=== PATIENT | male | born 1955 | race Caucasian/White ===

== ENCOUNTER → 2019-06-04 12:18 | Outpatient (BNVA) | payer MEDICARE, MEDICAID, SELFPAY | PROVIDERS: Family Provider Nurse Practitioner; PCP Nurse Practitioner; Visit Provider Nurse Practitioner | DX: E78.2 Mixed hyperlipidemia (principal); M17.12 Unilateral primary osteoarthritis, left knee; Z12.5 Encounter for screening for malignant neoplasm of prostate; M19.90 Unspecified osteoarthritis, unspecified site | CPT/HCPCS: 80053; 80061; 85025; G0103 ==

== ENCOUNTER → 2019-12-24 09:02 | Outpatient (BNVA) | payer MEDICARE, MEDICAID, SELFPAY | PROVIDERS: Family Provider Nurse Practitioner; PCP Nurse Practitioner; Visit Provider Nurse Practitioner | DX: M17.12 Unilateral primary osteoarthritis, left knee (principal); Z12.83 Encounter for screening for malignant neoplasm of skin | CPT/HCPCS: 80053 ==

== ENCOUNTER → 2020-06-24 13:45 | Outpatient (BNVA) | payer MEDICARE, MEDICAID, SELFPAY | PROVIDERS: Family Provider Nurse Practitioner; PCP Nurse Practitioner; Visit Provider Nurse Practitioner | DX: K64.4 Residual hemorrhoidal skin tags (principal); M17.12 Unilateral primary osteoarthritis, left knee; Z12.83 Encounter for screening for malignant neoplasm of skin; E78.5 Hyperlipidemia, unspecified; Z12.5 Encounter for screening for malignant neoplasm of prostate; Z79.899 Other long term (current) drug therapy | CPT/HCPCS: 80053; 85025 ==

== ENCOUNTER → 2020-12-15 08:18 | Outpatient (BNVA) | payer MEDICARE, MEDICAID, SELFPAY | PROVIDERS: Family Provider Nurse Practitioner; PCP Nurse Practitioner; Visit Provider Nurse Practitioner | DX: Z13.6 Encounter for screening for cardiovascular disorders (principal); Z12.5 Encounter for screening for malignant neoplasm of prostate | CPT/HCPCS: 80053; 80061; G0103 ==

== ENCOUNTER → 2021-01-26 14:03 | Outpatient (BNVA) | payer MEDICARE, MEDICAID, SELFPAY | PROVIDERS: Family Provider Nurse Practitioner; PCP Nurse Practitioner; Visit Provider Nurse Practitioner | DX: R10.9 Unspecified abdominal pain (principal); K59.00 Constipation, unspecified; K64.4 Residual hemorrhoidal skin tags | CPT/HCPCS: 74018; 80053; 85025 ==

== ENCOUNTER → 2021-02-28 09:36 | Outpatient (BNVA) | payer MEDICARE, MEDICAID, SELFPAY | PROVIDERS: Family Provider Nurse Practitioner; PCP Nurse Practitioner; Visit Provider Surgery | DX: Z12.11 Encounter for screening for malignant neoplasm of colon (principal); Z20.822 Contact with and (suspected) exposure to COVID-19; Z01.812 Encounter for preprocedural laboratory examination | CPT/HCPCS: 87635 ==

== ENCOUNTER 2021-03-04 07:10 | Day surgery (SDC) | payer MEDICARE, MEDICAID, SELFPAY ==
[2021-03-02 14:46] VITALS: BMI 25.0
--- NOTE | 2021-03-04 07:29 | ANES.PREANE2 ---
Pre-Anesthetic Assessment Height/Weight: Height 1.68 m Weight 70.307 kg Preop Diagnosis: diagnostic Operation Date: 03/04/21 08:30 Proposed Procedures p Colonoscopy 84188 Z12.11(Not Applicable) - Rosalino Cedeno MD Familial anesthetic complications: None Was Beta Elo taken within 24 hours: N/A Was Clonidine taken within 24 hours: N/A Social No alcohol and No tobacco Exam alert, oriented x 3, clear to auscultation bilaterally and regular rate & rhythm Airway Submandibular: within normal limits Cervical ROM: within normal limits Mallampati: Class II Dentition: full Pulmonary None reported CV/HEM None reported METS > 4 None reported Hepatic None reported GI None reported Metabolic None reported Musc/skel None reported Neuropsych None reported Anesthetic Plan ASA status: 1 Anesthesia: Anesthesia Evaluation, General and MAC Other: I discussed with the patient risks, goals, and benefits of MAC and general anesthesia. We discussed spectrum of MAC anesthesia including conversion to general as well as possibility of recall of intraoperative stimuli including discomfort/pain. Patient agrees to proceed with MAC. Risk of > 500 ml blood loss (7ml/kg in children): No Medications/Allergies Home Medications Medication Instructions Recorded Confirmed Last Taken Type aspirin 325 mg tablet,delayed 325 mg PO DAILY PRN 06/03/19 03/02/21 Unknown History release (Aspir-Lindsay) meloxicam 7.5 mg tablet (Mobic) 7.5 mg PO DAILY #30 tab 12/15/20 03/02/21 Unknown Rx hydrocortisone 2.5 % topical cream [address] Q12H PRN #30 g 01/26/21 03/02/21 Unknown Rx with perineal applicator (Proctosol HC) Allergies Allergy/AdvReac Type Severity Reaction Status Date / Time Penicillins Allergy Difficulty Verified 12/21/20 14:30 swallowing PFS Anesthesia Medical History History of basal cell carcinoma Under right eye 1998 Mixed hyperlipidemia Osteoarthritis Surgical History H/O left knee surgery History of sinus surgery Family History Father COPD (chronic obstructive pulmonary disease) Social History (Reviewed 03/04/21 @ 07:29 by JELENA Dunaway Smoking and tobacco status: never smoked Second hand smoke exposure: No Smoking risk assessment/counseling performed?: No Alcohol intake: never Desire information about alcohol rehabilitation?: No Counseling given: No Desire information about substance/drug rehabilitation?: No Counseling given: No Adopted: No Caregiver/support person: No Lives independently: Yes Household members: spouse Housing: House Marital status: Number of children: 2 service: No Current occupational status: retired Current occupational exposures/hazards: No History of recent travel: No Current gender identity: Male Data Anesthesia Cardiac Studies: No Data to Display
[2021-03-04 07:53] VITALS: BP 103/66; PULSE 76; RESP 18; TEMP 36.4; O2SAT 97
[2021-03-04] MEDS: sodium chloride 0.9% 1,000 ML 30 ML IV (08:00)
--- NOTE | 2021-03-04 08:23 | P.HP_ITS ---
Same Day Surgery H&P Indication for Procedure/HPI DATE OF PROCEDURE: March 04, 2021 CHIEF COMPLAINT/INDICATIONFOR SURGICAL PROCEDURE: screening PREOP DIAGNOSIS: diagnostic PLANNED PROCEDURE: Operation Date: 03/04/21 08:30 Proposed Procedures p Colonoscopy 40074 Z12.11(Not Applicable) - Rosalino Cedeno MD Medications/Allergies* Home Medications Medication Instructions Recorded Confirmed Type aspirin 325 mg tablet,delayed 325 mg PO DAILY PRN 06/03/19 03/04/21 History release (Aspir-Lindsay) Allergies/Adverse Reactions Allergy/AdvReac Type Severity Reaction Status Date / Time Penicillins Allergy Difficulty Verified 03/04/21 07:52 swallowing Current Medications: Generic Name Dose Route Start Last Admin Trade Name Freq PRN Reason Stop Dose Admin Sodium Chloride 1,000 mls @ 30 mls/hr 03/04/21 07:30 03/04/21 08:00 Sodium Chloride 0.9% IV 03/05/21 07:29 30 mls/hr .Q24H LISETTE Administration Pertinent History/Comorbid Conditions* Medical History (Updated 12/21/20 @ 16:25 by Rosalino Cedeno MD) History of basal cell carcinoma Under right eye 1998 Mixed hyperlipidemia Osteoarthritis Surgical History (Updated 12/21/20 @ 16:25 by Rosalino Cedeno MD) H/O left knee surgery History of sinus surgery Family History (Updated 06/04/19 @ 12:17 by NELDA Orlando) COPD (chronic obstructive pulmonary disease) Father Social History Smoking and tobacco status: never smoked Second hand smoke exposure: No Smoking risk assessment/counseling performed?: No Alcohol intake: never Desire information about alcohol rehabilitation?: No Counseling given: No Desire information about substance/drug rehabilitation?: No Counseling given: No Adopted: No Caregiver/support person: No Lives independently: Yes Household members: spouse Housing: House Marital status: Number of children: 2 service: No Current occupational status: retired Current occupational exposures/hazards: No History of recent travel: No Current gender identity: Male Pertinent Exam Findings alert, oriented x 3 and regular rate & rhythm Recommendations Surgery/Procedure today Coding Level of Care Code Acute Knitter Operator for Justin Kelley
[2021-03-04 08:47] VITALS: BP 109/69; PULSE 66; RESP 12; TEMP 36.2; O2SAT 98
--- NOTE | 2021-03-04 12:53 | ANE.PACU2 ---
Inpatient post-anesthesia follow up: Airway intact: Yes Vital signs: Temperature 97.1 F Pulse Rate 66 Respiratory Rate 12 Blood Pressure 109/69 Pulse Oximetry 98 Oxygen Delivery Me thod Room Air Oxygen Flow Rate Fraction of Inspir ed Oxygen Hydration adequate: Yes Nausea and vomiting: No Pain level: 1 Mental status: Baseline
== END 2021-03-04 09:22 | disposition home or self-care (01) ==
PROVIDERS: PCP Nurse Practitioner; Visit Provider Surgery
PROC: 0DJD8ZZ Inspection of Lower Intestinal Tract, Via Natural or Artificial Opening Endoscopic (ICD-10-PCS; CPT 45378; principal; 2021-03-04 08:30)
DX: Z12.11 Encounter for screening for malignant neoplasm of colon (principal); D12.5 Benign neoplasm of sigmoid colon; K64.8 Other hemorrhoids; Z79.82 Long term (current) use of aspirin; E78.2 Mixed hyperlipidemia; M19.90 Unspecified osteoarthritis, unspecified site
CPT/HCPCS: 45380; 88305; J2704; J7030

== ENCOUNTER → 2021-05-12 14:59 | Outpatient (BNVA) | payer MEDICARE, MEDICAID, SELFPAY | PROVIDERS: PCP Nurse Practitioner; Visit Provider Nurse Practitioner Family | DX: R05.9 Cough, unspecified (principal); J06.9 Acute upper respiratory infection, unspecified | CPT/HCPCS: 87400; 87635 ==

== ENCOUNTER → 2021-06-08 09:10 | Outpatient (BNVA) | payer MEDICARE, MEDICAID, SELFPAY | PROVIDERS: PCP Nurse Practitioner; Visit Provider Nurse Practitioner | DX: M17.12 Unilateral primary osteoarthritis, left knee (principal) | CPT/HCPCS: 80053 ==

== ENCOUNTER → 2021-12-19 09:12 | Outpatient (BNVA) | payer MEDICARE, MEDICAID, SELFPAY | PROVIDERS: PCP Nurse Practitioner; Visit Provider Nurse Practitioner | DX: E78.2 Mixed hyperlipidemia (principal); Z12.5 Encounter for screening for malignant neoplasm of prostate | CPT/HCPCS: 80053; 80061; G0103 ==

== ENCOUNTER → 2022-05-30 09:56 | Outpatient (BNVA) | payer MEDICARE, MEDICAID, SELFPAY | PROVIDERS: PCP Family Medicine; Referring Provider Family Medicine; Visit Provider Surgery | DX: K64.9 Unspecified hemorrhoids (principal) | CPT/HCPCS: 99213 ==

== ENCOUNTER → 2022-06-15 11:33 | Outpatient (BNVA) | payer MEDICARE, MEDICAID, SELFPAY | PROVIDERS: PCP Family Medicine; Visit Provider Nurse Practitioner Family | DX: R07.9 Chest pain, unspecified (principal); E78.2 Mixed hyperlipidemia | CPT/HCPCS: 71046; 80053; 84484; 85025 ==

== ENCOUNTER 2022-06-17 09:29 | Emergency (ER) | payer MEDICARE, MEDICAID, SELFPAY ==
[2022-06-17] VITALS (12 sets, daily range): BP systolic 132–159; BP diastolic 75–89; PULSE 68–88; RESP 16; O2SAT 97–99; BMI 25.8
--- NOTE | 2022-06-17 09:33 | ECG_ITS ---
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 Measurements Intervals [place] Rate: 81 P: 28 [place]: 152 QRS: -17 QRSD: 102 T: 69 QT: 357 QTc: 416 Interpretive Statements SINUS RHYTHM NONSPECIFIC T-WAVE ABNORMALITY No previous ECG available for comparison Electronically Signed On 06-17-2022 19:23:02 CDT by Arcadio Castro M.D. [email or web address]De[id number] f
--- NOTE | 2022-06-17 09:33 | XRR_ITS ---
PROCEDURE INFORMATION: Exam: XR Chest Exam date and time: 06/17/2022 10:18 AM Age: 67 years old Clinical indication: Pain; Chest pressure; Additional info: Chest pain TECHNIQUE: Imaging protocol: Radiologic exam of the chest. Views: 1 view. COMPARISON: CR XR chest 2V* [id number] 06/15/2022 11:34 AM FINDINGS: Lungs: The lung parenchyma is clear. Pleural spaces: No pneumothorax. No pleural effusion. Heart/Mediastinum: The cardiomediastinal silhouette is within normal limits. Bones/joints: Unremarkable. XR/XR chest 1V portable [id number] IMPRESSION: No acute cardiopulmonary abnormality.
[2022-06-17] MEDS: aspirin 81 mg Chew Tablet 324 MG PO (09:47)
--- NOTE | 2022-06-17 09:47 | ED_ITS ---
HPI - Chest Pain General: Chief Complaint: Chest Pain Stated Complaint: Chest pain Time Seen by Provider: 06/17/22 09:31 Source: patient Mode of arrival: ambulatory History of Present Illness: 67-year-old male presents to the emergency room with complaints of shortness of breath and chest pain initially began 3 days ago. He had bilateral arm numbness it seemed to come and go lasted no more than an hour earlier in the week this morning began having around 7 AM describes it as a tightness symptoms. He has some mild discomfort in his chest at this time. He has no known cardiac history. He has not had any associated diaphoresis or nausea. No previous cardiac evaluation. MD complaint: chest pain Onset (ago): day(s) (3) Timing of current episode: episodic Prior episodes: Yes Onset: during rest Pain location: substernal Pain radiation: right arm and left arm Severity: mild Quality: aching and heaviness Relieving factors: nothing Exacerbating factors: nothing Associated symptoms: Reports dyspnea; Deny abdominal pain, diaphoresis, fever(s), leg edema, nausea, palpitations, sense of impending doom, syncope, vomiting or other Review of Systems Const: Denies: fever(s), chills, fatigue, malaise or diaphoresis ENMT: Denies: throat pain, ear or mastoid pain, nasal discharge or nasal congestion Card: Reports: chest pain; Denies: palpitations, irregular heart rhythm, edema or syncope Resp: Reports: dyspnea; Denies: productive cough or non-productive cough GI: Denies: abdominal pain, nausea or vomiting : Denies: flank pain, dysuria, urinary frequency or urinary urgency Musc: Denies: neck pain or back pain Skin/Breast: Denies: rash or pruritus PFSH ED PFSH: Medical History History of basal cell carcinoma Under right eye 1998 Mixed hyperlipidemia Osteoarthritis Surgical History H/O left knee surgery History of colonoscopy with polypectomy (03/04/21) History of sinus surgery Family History Father COPD (chronic obstructive pulmonary disease) Social History Smoking and tobacco status: never smoked Second hand smoke exposure: No Smoking risk assessment/counseling performed?: No Alcohol intake: never Desire information about alcohol rehabilitation?: No Counseling given: No Substance/Drug Use: never Desire information about substance/drug rehabilitation?: No Counseling given: No Adopted: No Caregiver/support person: No Lives independently: Yes Household members: spouse Housing: House Marital status: Number of children: 2 service: No Current occupational status: retired Current occupational exposures/hazards: No Do you think of yourself as: Straight/Heterosexual Current gender identity: Male Physical Exam Const: COMMON NORMALS: no acute distress GENERAL APPEARANCE: cooperative and comfortable ORIENTATION/CONSCIOUSNESS: Yes awake, Yes oriented to person, Yes oriented to place and Yes oriented to time HENMT: COMMON NORMALS: normocephalic, atraumatic and hearing grossly normal bilaterally HEAD & SCALP: normocephalic and atraumatic Resp: COMMON NORMALS: normal respiratory effort, No retractions, No use of accessory muscles and clear to auscultation bilaterally AUSCULTATION: clear to auscultation bilaterally Cardio: COMMON NORMALS: regular rate, regular rhythm and No murmurs present (Cardio) RATE: regular rate RHYTHM: regular rhythm GI: COMMON NORMALS: Soft to palpation and No hepatosplenomegaly present AUSCULTATION: Yes normoactive bowel sounds PALPATION: Yes Soft to palpation, No Tenderness to palpation present (GI), No Guarding due to palpation present (GI) and Yes No hepatosplenomegaly present Extremity: COMMON NORMALS: normal to inspection, capillary refill normal, no clubbing, cyanosis or edema, no calf tenderness and no pedal edema Neuro: SENSORIUM/ORIENTATION: Yes oriented to person, Yes oriented to place and Yes oriented to time Skin: COMMON NORMALS: no rashes or lesions noted GENERAL SKIN EXAM: no rashes or lesions noted Course Vital Signs: Vital signs: Vital Signs Pulse Rate 68 06/17/22 11:15 Respiratory Rate 16 06/17/22 09:33 Blood Pressure 136/75 06/17/22 12:00 Pulse Oximetry 98 06/17/22 12:45 Oxygen Delivery Me thod Room Air 06/17/22 09:33 MDM - Chest Pain Medical Decision Making Chest pain resolved patient has not had any further symptoms EKG is unremarkable troponin does not have a significant delta change. We will start him on isosorbide mononitrate also start him on baby aspirin daily we will set him up for an outpatient Lexiscan sestamibi stress test. If he has any worsening or change symptoms return avoid exertional activity. Medical Records I reviewed the patient's medical records. Lab Data I reviewed the patient's lab results. 06/17/22 09:45 06/17/22 09:45 Radiology Impressions Chest X-Ray 06/17/22 09:33 IMPRESSION: No acute cardiopulmonary abnormality. Laboratory Results WBC 12.2 10^3/uL (4.0-10.0) H 06/17/22 09:45 RBC 4.60 10^6/uL (4.1-5.3) 06/17/22 09:45 Hgb 13.5 g/dL (11.7-16.6) 06/17/22 09:45 Hct 42.0 % (42.0-52.0) 06/17/22 09:45 MCV 91.3 fl (80-94) 06/17/22 09:45 MCH 29.3 pg (28.0-34.0) 06/17/22 09:45 MCHC 32.1 g/dL (30.0-36.0) 06/17/22 09:45 RDW 13.7 % (12.1-15.1) 06/17/22 09:45 Plt Count 244 10^3/cmm (130-400) 06/17/22 09:45 MPV 11.1 fL (7.4-10.4) H 06/17/22 09:45 Neut % (Auto) 84.9 % 06/17/22 09:45 Lymph % (Auto) 5.6 % 06/17/22 09:45 [place] % (Auto) 8.9 % 06/17/22 09:45 Eos % (Auto) 0.0 % 06/17/22 09:45 Baso % (Auto) 0.2 % 06/17/22 09:45 Neut # (Auto) 10.38 10^3/uL (1.8-7.7) H 06/17/22 09:45 Lymph # (Auto) 0.7 10^3/uL (0.8-4.8) L 06/17/22 09:45 [place] # (Auto) 1.1 10^3/uL (0.2-0.9) H 06/17/22 09:45 Eos # (Auto) 0.0 10^3/uL (0.0-0.8) 06/17/22 09:45 Baso # (Auto) 0.0 10^3/uL (0.0-0.1) 06/17/22 09:45 Nucleated RBC % (auto) 0 % 06/17/22 09:45 Nucleated RBCs # 0.0 /100WBC 06/17/22 09:45 Sodium 137 mmol/L (136-145) 06/17/22 09:45 Potassium 4.1 mmol/L (3.5-5.1) 06/17/22 09:45 Chloride 100 mmol/L (98-107) 06/17/22 09:45 Carbon Dioxide 25 mmol/L (22-29) 06/17/22 09:45 Anion Gap 16.1 (5-19) 06/17/22 09:45 BUN 13 mg/dL (8-23) 06/17/22 09:45 Creatinine 0.7 mg/dL (0.7-1.2) 06/17/22 09:45 GFR Calculation 111.8 mL/min (90-130) 06/17/22 09:45 Glucose 97 mg/dL (65-115) 06/17/22 09:45 Calculated Osmolality 284 mOsm/kg (285-295) L 06/17/22 09:45 Calcium 9.0 mg/dL (8.5-10.5) 06/17/22 09:45 Total Bilirubin 0.3 mg/dL (0.15-1.2) 06/17/22 09:45 AST 16 U/L (0-40) 06/17/22 09:45 ALT 15 U/L (0-41) 06/17/22 09:45 Alkaline Phosphatase 59 U/L (40-130) 06/17/22 09:45 Troponin T Baseline 17 ng/L (0-15) H 06/17/22 09:45 Troponin T 120 Minute 20.83 ng/L (0-15) H 06/17/22 11:58 Delta Troponin T 3.83 ABS# (0-10) 06/17/22 11:58 Total Protein 7.1 g/dL (6.6-8.7) 06/17/22 09:45 Albumin 4.6 g/dL (3.5-5.2) 06/17/22 09:45 Globulin 2.5 g/dL (1.3-4.6) 06/17/22 09:45 Discharge Plan Discharge Patient Disposition: Home Clinical Impression: Atypical chest pain Condition: Stable Prescriptions: New isosorbide mononitrate 30 mg tablet extended release 24 hr 30 mg PO DAILY Qty: 30 0RF aspirin 81 mg tablet,delayed release (DR/EC) 81 mg PO DAILY Qty: 30 0RF No Action aspirin [Aspir-Lindsay] 325 mg tablet,delayed release (DR/EC) 325 mg PO DAILY PRN (Reason: Pain) Claritin-D 12 Hour 5-120 mg tablet extended release 12 hr 1 tab PO Q12H PRN (Reason: allergy symptoms) Qty: 30 0RF fluticasone propionate 50 mcg/actuation spray,suspension 1 spray intranasal Q12H PRN (Reason: allergy symptoms) Qty: 16 0RF Rx Instructions: administer into each nostril prednisone 10 mg tablets,dose pack See Rx Instructions PO PER PKG DIR Qty: 21 0RF Rx Instructions: PO PER PKG DIR levofloxacin 500 mg tablet 500 mg PO DAILY Qty: 7 0RF albuterol sulfate 90 mcg/actuation HFA aerosol inhaler 2 puff inhalation QID PRN (Reason: shortness of breath or wheezing) Qty: 6.7 2RF budesonide-formoterol [Symbicort] 160-4.5 mcg/actuation HFA aerosol inhaler 2 puff inhalation BID Qty: 10.2 2RF meloxicam 7.5 mg tablet 7.5 mg PO DAILY Qty: 30 5RF Tussin DM 10-100 mg/5 mL Liquid 10 ml PO Q4H PRN (Reason: Cough) Discharge Orders: Discharge ED (Routine); Ordered 06/17/22 Ordered By: Albert Lynch Referrals: Lamar Galo MD [Primary Care Provider] - Discharge Diet: Usual diet Patient Instructions: Chest Pain (ED), Opioid Safety, Pain Management Activity Restrictions/Additional Instructions: You were seen emergency room for episode of chest comfort your EKGs and t roponins are unremarkable. You are discharged home advised to take aspirin and isosorbide mononitrate daily. Avoid any exertional activities Case management make arrangements for you an outpatient stress test. Coding Level of Care Code ED Golf Superintendent for Justin Kelley
[2022-06-17 10:03] LABS: Basophils % 0.2 %; Hemoglobin 13.5 g/dL (11.7-16.6); Lymphocytes # 0.7 10^3/uL (0.8-4.8); Lymphocytes % 5.6 %; Mean Corpuscular HGB Conc 32.1 g/dL (30.0-36.0); Mean Corpuscular Hemoglobin 29.3 pg (28.0-34.0); Mean Corpuscular Volume 91.3 fl (80-94); Mean Platelet Volume 11.1 fL (7.4-10.4); Monocytes # 1.1 10^3/uL (0.2-0.9); Monocytes % 8.9 %; Neutrophils # 10.38 10^3/uL (1.8-7.7); Neutrophils % 84.9 %; Nucleated Red Blood Cells % 0 %; Platelet Count 244 10^3/cmm (130-400); Red Cell Distribution Width 13.7 % (12.1-15.1); White Blood Count 12.2 10^3/uL (4.0-10.0)
[2022-06-17] MEDS: nitroglycerin 1 gm/inch oint Pkt 0.5 INCH TOPICAL (10:16)
[2022-06-17 10:23] LABS: Alanine Aminotransferase 15 U/L (0-41); Albumin Level 4.6 g/dL (3.5-5.2); Alkaline Phosphatase 59 U/L (40-130); Anion Gap 16.1 (5-19); Aspartate Amino Transferase 16 U/L (0-40); Blood Urea Nitrogen 13 mg/dL (8-23); Carbon Dioxide 25 mmol/L (22-29); Chloride 100 mmol/L (98-107); Globulin 2.5 g/dL (1.3-4.6); Glomerular Filtration Rate 111.8 mL/min (90-130); Glucose 97 mg/dL (65-115); Osmolality Calculated 284 mOsm/kg (285-295); Potassium 4.1 mmol/L (3.5-5.1); Sodium 137 mmol/L (136-145); Total Bilirubin 0.3 mg/dL (0.15-1.2); Total Protein 7.1 g/dL (6.6-8.7)
[2022-06-17 10:25] LABS: Troponin(5th) Baseline 17 ng/L (0-15)
--- NOTE | 2022-06-17 11:33 | ECG_ITS ---
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 Measurements Intervals [place] Rate: 67 P: 31 DE: 154 QRS: -16 QRSD: 96 T: 61 QT: 368 QTc: 390 Interpretive Statements SINUS RHYTHM PROBABLE SEPTAL MYOCARDIAL INFARCTION , OF INDETERMINATE AGE [35 ms Q WAVE IN V1/V2] Compared to ECG 06/17/2022 09:40:43 Myocardial infarct finding now present T-wave abnormality no longer present Electronically Signed On 06-17-2022 19:30:51 CDT by Arcadio Castro M.D. [id number]
[2022-06-17 12:29] LABS: Troponin 5 2HR 20.83 ng/L (0-15)
[2022-06-17 12:38] LABS: Troponin 5 2HR Delta 3.83 ABS# (0-10)
--- NOTE | 2022-06-19 14:28 | DCPLANNER ---
Addendum entered by Yamileth Winston 09/21/22 12:13: Patient had a stress test scheduled and he attended the appointment Original Note: clinical project manager had message to schedule an out patient stress test for patient. clinical project manager faxed signed order to centralized scheduling, who will call patient with appointment information.
== END 2022-06-17 13:05 | disposition home or self-care (01) ==
PROVIDERS: Emergency Provider Family Medicine; PCP Family Medicine
DX: R07.89 Other chest pain (principal); Z79.82 Long term (current) use of aspirin; E78.2 Mixed hyperlipidemia
CPT/HCPCS: 36415; 71045; 80053; 84484; 85025; 93005; 99285

== ENCOUNTER → 2022-06-26 08:41 | Outpatient (BNVA) | payer MEDICARE, MEDICAID, SELFPAY | PROVIDERS: PCP Family Medicine; Visit Provider Nurse Practitioner | DX: J30.89 Other allergic rhinitis (principal); J30.2 Other seasonal allergic rhinitis; I70.90 Unspecified atherosclerosis; E78.2 Mixed hyperlipidemia; M17.12 Unilateral primary osteoarthritis, left knee | CPT/HCPCS: 80061 ==

== ENCOUNTER 2022-07-07 08:00 | Emergency (ER) | payer MEDICARE, MEDICAID, SELFPAY ==
[2022-07-07] VITALS (8 sets, daily range): BP systolic 132–176; BP diastolic 73–96; PULSE 90–105; RESP 15–16; TEMP 36.9; O2SAT 96–98; BMI 25.4
--- NOTE | 2022-07-07 08:06 | XR_ITS ---
WS: [id number] Exam: XR chest 1V portable [id number] Date/Time of Exam: 07/07/2022 8:10 AM Reason For Exam: cp Comparison 06/17/2022. Findings: The lungs are clear and fully expanded. Costophrenic angles are sharp. No infiltrates. Bronchovascula r relief appears normal. Cardiac silhouette is unremarkable. Bony elements are intact. XR/XR chest 1V portable [id number] IMPRESSION: Unremarkable chest radiograph.
--- NOTE | 2022-07-07 08:07 | ECG_ITS ---
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 Measurements Intervals [place] Rate: 90 P: 33 [place]: 154 QRS: -10 QRSD: 92 T: 83 QT: 322 QTc: 396 Interpretive Statements SINUS RHYTHM VOLTAGE CRITERIA FOR LVH [MEETS CRITERIA IN ONE OF: R(aVL), S(V1), R(V5), R(V5/V6)+S(V1)] NONSPECIFIC T-WAVE ABNORMALITY Compared to ECG 06/17/2022 11:38:46 Left ventricular hypertrophy now present T-wave abnormality now present Myocardial infarct finding no longer present Electronically Signed On 07-07-2022 8:30:32 CDT by Miguel Angel Larry M.D. [id number]
--- NOTE | 2022-07-07 08:32 | W.ED.CHESTPA ---
HPI - Chest Pain General: Chief Complaint: Chest Pain Stated Complaint: Chest Pressure, cough Time Seen by Provider: 07/07/22 08:06 History of Present Illness: Patient is a 67-year-old male comes to the ED with chest pressure and cough. Patient woke up this morning and felt some pressure in the middle to the left side of his chest. He denies any chest pain and says it feels like a pressure/tightness in his chest. Denies any worsening or improving factors. He also has been dealing with a cough over the last month. His cough initially a month ago produced green sputum, but he says his cough has improved after some antibiotics and a course of steroids. Cough has not gone completely away and over the past couple days it is gotten worse again. He now coughs up a clear or white sputum on occasion. Endorses fatigue and some nasal drainage and congestion as well. Denies any fevers, shortness of breath, nausea/vomiting, abdominal pain, bladder or bowel symptoms. Associated symptoms: Deny abdominal pain, dyspnea, fever(s), nausea, palpitations or vomiting Review of Systems Const: Reports: fatigue; Denies: fever(s) or chills Eyes: Denies: change in vision or eye discomfort ENMT: Denies: throat pain, odynophagia, nasal discharge or nasal congestion Card: Reports: chest pain; Denies: palpitations, edema, swelling of feet/ankles, dyspnea on exertion or orthopnea Resp: Reports: productive cough; Denies: dyspnea or non-productive cough GI: Denies: abdominal pain, nausea, vomiting, diarrhea, constipation or hematochezia : Denies: flank pain, difficulty urinating, dysuria or hematuria Musc: Denies: neck pain, back pain or extremity swelling Skin/Breast: Denies: rash or new lesions Neuro: Denies: headache(s), numbness in extremities or weakness in extremities PFS ED PFSH: Medical History History of basal cell carcinoma Under right eye 1998 Mixed hyperlipidemia Osteoarthritis Statin medication declined by patient Surgical History H/O left knee surgery History of colonoscopy with polypectomy (03/04/21) History of sinus surgery Family History Father COPD (chronic obstructive pulmonary disease) Social History Smoking and tobacco status: never smoked Second hand smoke exposure: No Smoking risk assessment/counseling performed?: No Alcohol intake: never Desire information about alcohol rehabilitation?: No Counseling given: No Substance/Drug Use: never Desire information about substance/drug rehabilitation?: No Counseling given: No Adopted: No Caregiver/support person: No Lives independently: Yes Household members: spouse Housing: House Marital status: Number of children: 2 service: No Current occupational status: retired Current occupational exposures/hazards: No Do you think of yourself as: Straight/Heterosexual Current gender identity: Male Physical Exam Const: COMMON NORMALS: no acute distress, patient oriented x3, healthy appearing and alert HENMT: COMMON NORMALS: normocephalic HEAD & SCALP: normocephalic MOUTH: Normal oral and palatal mucosa present THROAT: posterior oropharynx normal and uvula midline Neck/C-Spine: COMMON NORMALS: supple GENERAL: Yes normal visual inspection Resp: COMMON NORMALS: normal respiratory effort, No retractions, No use of accessory muscles and clear to auscultation bilaterally AUSCULTATION: clear to auscultation bilaterally Cardio: COMMON NORMALS: regular rate, regular rhythm, S1 normal heart sound present, S2 normal heart sound present, No gallops present (Cardio), No clicks present (Cardio), No murmurs present (Cardio) and Peripheral pulses 2+ throughout RATE: regular rate RHYTHM: regular rhythm HEART SOUNDS: S1 normal heart sound present and S2 normal heart sound present PERIPHERAL PULSES: Peripheral pulses 2+ throughout GI: COMMON NORMALS: Normal to inspection, nondistended, normoactive bowel sounds present, Soft to palpation, non-tender and no masses PALPATION: Yes Soft to palpation : COMMON NORMALS: Yes no CVA tenderness BLADDER/KIDNEY EXAM: Yes no CVA tenderness Back/Pelvis: COMMON NORMALS: no CVA tenderness Extremity: COMMON NORMALS: normal to inspection Neuro: COMMON NORMALS: patient oriented x3 SENSORIUM/ORIENTATION: Yes alert GAIT: Yes Normal gait present Skin: GENERAL SKIN EXAM: dry skin Course Vital Signs: Vital signs: Vital Signs Temperature 98.4 F 07/07/22 08:04 Pulse Rate 96 07/07/22 12:01 Respiratory Rate 16 07/07/22 08:58 Blood Pressure 132/73 07/07/22 12:01 Pulse Oximetry 96 07/07/22 12:01 Oxygen Delivery Me thod Room Air 07/07/22 11:00 MDM - Chest Pain Medical Decision Making Patient is a 67-year-old male comes to the ED with chest pressure and cough. Patient woke up this morning and felt some pressure in the middle to the left side of his chest. He denies any chest pain and says it feels like a pressure/tightness in his chest. Denies any worsening or improving factors. He also has been dealing with a cough over the last month. His cough initially a month ago produced green sputum, but he says his cough has improved after some antibiotics and a course of steroids. Cough has not gone completely away and over the past couple days it is gotten worse again. He now coughs up a clear or white sputum on occasion. Endorses fatigue and some nasal drainage and congestion as well. Denies any fevers, shortness of breath, nausea/vomiting, abdominal pain, bladder or bowel symptoms. Vital stable. Patient appears nontoxic in no acute distress or pain. Lungs are clear to auscultation bilaterally. Rest of exam is benign. CBC and CMP were unremarkable. COVID, influenza were all negative. D-dimer normal at 0.4. Troponins negative and EKG showed normal sinus rhythm with no ST segment elevation or depression seen. Chest x-ray showed no acute findings. Given patient's symptoms he is diagnosed with bronchitis and was stable for discharge home. He was sent home with a prescription for an antibiotic and a steroid. Told to follow-up with his PCP within the next week for reevaluation. Return to ED precautions given. Patient understood and agreed with plan. Lab Data I reviewed the patient's lab results. 07/07/22 08:25 07/07/22 08:25 Radiology Impressions Chest X-Ray 07/07/22 08:06 IMPRESSION: Unremarkable chest radiograph. Laboratory Results WBC 9.7 10^3/uL (4.0-10.0) 07/07/22 08:25 RBC 4.62 10^6/uL (4.1-5.3) 07/07/22 08:25 Hgb 13.7 g/dL (11.7-16.6) 07/07/22 08:25 Hct 42.5 % (42.0-52.0) 07/07/22 08:25 MCV 92.0 fl (80-94) 07/07/22 08:25 MCH 29.7 pg (28.0-34.0) 07/07/22 08:25 MCHC 32.2 g/dL (30.0-36.0) 07/07/22 08:25 RDW 13.5 % (12.1-15.1) 07/07/22 08:25 Plt Count 252 10^3/cmm (130-400) 07/07/22 08:25 MPV 10.4 fL (7.4-10.4) 07/07/22 08:25 Neut % (Auto) 82.4 % 07/07/22 08:25 Lymph % (Auto) 8.6 % 07/07/22 08:25 Charlton % (Auto) 8.0 % 07/07/22 08:25 Eos % (Auto) 0.2 % 07/07/22 08:25 Baso % (Auto) 0.4 % 07/07/22 08:25 Neut # (Auto) 8.00 10^3/uL (1.8-7.7) H 07/07/22 08:25 Lymph # (Auto) 0.8 10^3/uL (0.8-4.8) 07/07/22 08:25 Charlton # (Auto) 0.8 10^3/uL (0.2-0.9) 07/07/22 08:25 Eos # (Auto) 0.0 10^3/uL (0.0-0.8) 07/07/22 08:25 Baso # (Auto) 0.0 10^3/uL (0.0-0.1) 07/07/22 08:25 Nucleated RBC % (auto) 0 % 07/07/22 08:25 Nucleated RBCs # 0.0 /100WBC 07/07/22 08:25 D-Dimer 0.40 ug/mIFEU (0-0.59) 07/07/22 08:25 Sodium 136 mmol/L (136-145) 07/07/22 08:25 Potassium 4.0 mmol/L (3.5-5.1) 07/07/22 08:25 Chloride 98 mmol/L (98-107) 07/07/22 08:25 Carbon Dioxide 25 mmol/L (22-29) 07/07/22 08:25 Anion Gap 17.0 (5-19) 07/07/22 08:25 BUN 8 mg/dL (8-23) 07/07/22 08:25 Creatinine 0.7 mg/dL (0.7-1.2) 07/07/22 08:25 GFR Calculation 111.8 mL/min (90-130) 07/07/22 08:25 Glucose 92 mg/dL (65-115) 07/07/22 08:25 Calculated Osmolality 280 mOsm/kg (285-295) L 07/07/22 08:25 Calcium 9.1 mg/dL (8.5-10.5) 07/07/22 08:25 Total Bilirubin 0.5 mg/dL (0.15-1.2) 07/07/22 08:25 AST 14 U/L (0-40) 07/07/22 08:25 ALT 11 U/L (0-41) 07/07/22 08:25 Alkaline Phosphatase 60 U/L (40-130) 07/07/22 08:25 Troponin T Baseline 13 ng/L (0-15) 07/07/22 08:25 Troponin T 120 Minute 14.43 ng/L (0-15) 07/07/22 10:24 Delta Troponin T 1.43 ABS# (0-10) 07/07/22 10:24 NT-Pro-B Natriuret Pep 464 pg/mL (0-125) H 07/07/22 08:25 Total Protein 7.7 g/dL (6.6-8.7) 07/07/22 08:25 Albumin 4.3 g/dL (3.5-5.2) 07/07/22 08:25 Globulin 3.4 g/dL (1.3-4.6) 07/07/22 08:25 Influenza Type A Ag negative (Negative) 07/07/22 09:18 Influenza Type B Ag negative (Negative) 07/07/22 09:18 SARS-CoV-2 Ag (Rapid) Negative (Negative) 07/07/22 09:18 EKG Data EKG 1: EKG interpretation date: 07/07/22 Interpretation: Normal sinus rhythm, 98 bpm, no ST segment elevation or depression seen. Discharge Plan Discharge Patient Disposition: Home Clinical Impression: Bronchitis Condition: Stable Prescriptions: New doxycycline hyclate 100 mg capsule 100 mg PO BID 10 Days Qty: 20 0RF methylprednisolone 4 mg tablets,dose pack See Rx Instructions .ROUTE .COMPLEX Qty: 21 0RF Rx Instructions: orally per package directions No Action aspirin [Aspir-Lindsay] 325 mg tablet,delayed release (DR/EC) 325 mg PO DAILY PRN (Reason: Pain) albuterol sulfate 90 mcg/actuation HFA aerosol inhaler 2 puff inhalation QID PRN (Reason: shortness of breath or wheezing) Qty: 6.7 2RF budesonide-formoterol [Symbicort] 160-4.5 mcg/actuation HFA aerosol inhaler 2 puff inhalation BID Qty: 10.2 2RF fluticasone propionate 50 mcg/actuation spray,suspension 1 spray intranasal Q12H PRN (Reason: allergy symptoms) Qty: 16 2RF Rx Instructions: administer into each nostril cetirizine [Zyrtec] 10 mg tablet 10 mg PO DAILY Qty: 30 0RF Rx Instructions: OTC dextromethorphan-guaifenesin [Tussin DM] 10-100 mg/5 mL Liquid 10 ml PO Q4H PRN (Reason: Cough) isosorbide mononitrate 30 mg tablet extended release 24 hr 30 mg PO DAILY Qty: 30 0RF aspirin 81 mg tablet,delayed release (DR/EC) 81 mg PO DAILY Qty: 30 0RF Discharge Orders: Discharge ED (Routine); Ordered 07/07/22 Ordered By: Landon Collins Referrals: Chico Marrero, TECHNOLOGY MANAGER-C [Primary Care Provider] - Discharge Diet: Regular Discharge Activity: Increase activity as tolerated Patient Instructions: Bronchitis (Acute) - Adult Activity Restrictions/Additional Instructions: Follow-up with medical provider as directed in the next 5 to 7 days for reevaluation. Take medications as prescribed. Return to the ER or your medical provider if condition worsens. Please read and understand discharge instructions. Thank you for choosing [facility] for your healthcare needs today. Please realize this is an emergency room and that we are providing you with a medical screening exam and this may not be complete and all inclusive of all the testing and or work up that you may need to determine your ailment or severity of your illness. It is very important that you follow up as instructed or that you return to the Emergency Department should you have concerns or if your condition changes or worsens in any way. Coding Level of Care Code ED Bead Preparer for Justin Kelley
[2022-07-07 08:38] LABS: Basophils % 0.4 %; Eosinophils % 0.2 %; Hematocrit 42.5 % (42.0-52.0); Hemoglobin 13.7 g/dL (11.7-16.6); Lymphocytes # 0.8 10^3/uL (0.8-4.8); Lymphocytes % 8.6 %; Mean Corpuscular HGB Conc 32.2 g/dL (30.0-36.0); Mean Corpuscular Hemoglobin 29.7 pg (28.0-34.0); Mean Platelet Volume 10.4 fL (7.4-10.4); Monocytes # 0.8 10^3/uL (0.2-0.9); Neutrophils % 82.4 %; Nucleated Red Blood Cells % 0 %; Platelet Count 252 10^3/cmm (130-400); Red Blood Count 4.62 10^6/uL (4.1-5.3); Red Cell Distribution Width 13.5 % (12.1-15.1); White Blood Count 9.7 10^3/uL (4.0-10.0)
[2022-07-07 08:53] LABS: Troponin(5th) Baseline 13 ng/L (0-15)
[2022-07-07 09:01] LABS: Alanine Aminotransferase 11 U/L (0-41); Albumin Level 4.3 g/dL (3.5-5.2); Alkaline Phosphatase 60 U/L (40-130); Aspartate Amino Transferase 14 U/L (0-40); Blood Urea Nitrogen 8 mg/dL (8-23); Calcium 9.1 mg/dL (8.5-10.5); Carbon Dioxide 25 mmol/L (22-29); Chloride 98 mmol/L (98-107); Globulin 3.4 g/dL (1.3-4.6); Glomerular Filtration Rate 111.8 mL/min (90-130); Glucose 92 mg/dL (65-115); NT Pro B Type Natriuretic Pept 464 pg/mL (0-125); Osmolality Calculated 280 mOsm/kg (285-295); Sodium 136 mmol/L (136-145); Total Bilirubin 0.5 mg/dL (0.15-1.2); Total Protein 7.7 g/dL (6.6-8.7)
[2022-07-07] MEDS: ipratropium-albuterol 3 mL Neb INHALATION (09:01)
[2022-07-07 09:51] LABS: Influenza A by IFA negative (Negative); Influenza B by IFA negative (Negative)
[2022-07-07 10:01] LABS: SARS Covid-2 Antigen Negative (Negative)
--- NOTE | 2022-07-07 10:16 | ECG_ITS ---
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 Measurements Intervals Edwards Rate: 98 P: 17 ME: 165 QRS: -15 QRSD: 95 T: 79 QT: 347 QTc: 444 Interpretive Statements SINUS RHYTHM VOLTAGE CRITERIA FOR LVH [MEETS CRITERIA IN ONE OF: R(aVL), S(V1), R(V5), R(V5/V6)+S(V1)] NONSPECIFIC ST & T-WAVE ABNORMALITY Compared to ECG 07/07/2022 08:21:48 No significant changes Electronically Signed On 07-07-2022 13:14:03 CDT by Miguel Angel Larry M.D. [id number]
[2022-07-07 10:59] LABS: Troponin 5 2HR 14.43 ng/L (0-15)
[2022-07-07 11:22] LABS: Troponin 5 2HR Delta 1.43 ABS# (0-10)
== END 2022-07-07 11:50 | disposition home or self-care (01) ==
PROVIDERS: Emergency Provider Physician Assistant; PCP Nurse Practitioner
DX: J40 Bronchitis, not specified as acute or chronic (principal)
CPT/HCPCS: 36415; 71045; 80053; 83880; 84484; 85025; 85378; 87426; 87804; 93005; 94640; 99285

== ENCOUNTER 2022-07-14 07:08 | Outpatient (CLI) | payer MEDICARE, MEDICAID, SELFPAY ==
[2022-07-14 07:13] VITALS: BMI 25.4
--- NOTE | 2022-07-14 07:42 | ECG_ITS ---
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 Interpretive Statements NAME OF STUDY: LEXISCAN SESTAMIBI STRESS TEST INDICATION: [Atypical Chest Pain, ] Procedure: At the baseline, the blood pressure was 138/75 mmHg with a heart rate of 64 bpm. The electrocardiogram showed normal sinus rhythm, normal axis with normal ST and T's. The Lexiscan was infused over a period of 20 seconds. A total of 0.4 mg of Lexiscan was infused. The stress phase was continued for a total of 5 minutes. Heart rate was at the end of stress phase was 79 bpm and a blood pressure of 128/78 mmHg. The EKG at the peak infusion revealed normal sinus rhythm with no significant ST-T wave changes. Sestamibi was injected 20 seconds after the Lexiscan infusion. Blood pressure at the end of recovery phase was 132/79 mmHg with a heart rate of 74 bpm. Conclusion: 1. Normal EKG response to Lexiscan infusion 2. No Lexiscan induced chest pain or cardiac arrhythmia. 3. Normal blood pressure and heart rate response. 4. Sestamibi/sestamibi perfusion scan pending; see separate report. Electronically Signed On 07-28-2022 14:06:13 CDT by Miguel Angel Larry M.D. [id number]
--- NOTE | 2022-07-14 07:42 | NMCV_ITS ---
NM julio perf SPECT r/s* [id number] Jewel Petersen Age: 67 Gender: M : 1955 Exam Date: 07/14/2022 08:17 Ordering Phys: Albert Lynch DO Technologist: RONAL Craven Exam Location: [facility] Indications: CHEST PAIN STRESS TEST Please [facility] for [facility] IMAGE PROTOCOL Rest/Stress 1 Lexiscan Day Radiopharmaceutical Dose (mCi) Administration Site Administered by Rest: Tc-99m 10.9 IV Antelmo Hunter, ASSEMBLER CRIMPER Sestamibi Stress:Tc-99m 32.8 IV Antelmo Huntre, ASSEMBLER CRIMPER Sestamibi Rest: 14-Jul-2022 60 Discovery 630 Stress: 14-Jul-2022 30 Discovery 630 0.4mg Lexiscan. Images obtained in supine and prone position. SPECT RESULTS Technical Quality: Excellent Raw Data Analysis: Normal Image Corrections: No attenuation or motion correction applied Summed Stress Score: 14 Summed Rest Score: 12 Summed Difference Score: 5 PERFUSION FINDINGS There is a large in size partially reversible perfusion defect noted in apical, apical septal and anterior bellamy. This is consistent with medium sized prior infarct with large area of seng-infarct ischemia in the LAD territory. There is a medium sized mostly fixed perfusion defect noted in apical inferior and inferior bellamy. This is consistent with medium sized area of prior infarct in RCA territory with minimal seng-infarct ischemia. FUNCTIONAL RESULTS (calculated via Gated SPECT) Stress Image LV EF (%): 55 Stress EDV (mL):120 TID: 1.3 Stress ESV (mL):54 FUNCTIONAL FINDINGS: There is normal left ventricular systolic function. TID ratio is elevated. This may represent multivessel disease vs subendocardial ischemia. IMPRESSIONS 1. Abnormal myocardial perfusion imaging with with medium sized area of prior infarct seen in LAD territory with large area of seng-infarct ischemia. 2. Medium sized area of prior infarct in RCA territory with minimal seng- infarct ischemia seen. 3. LV systolic function is normal. Normal 4. TID ratio is elevated. This may represent multivessel disease versus subendocardial ischemia. Miguel Angel Larry MD (Electronically Signed) Final Date: 15 July 2022 11:40 S
[2022-07-14] MEDS: regadenoson 0.4 Mg/5 ml Syringe IVP (08:52)
[2022-07-14 09:06] VITALS: BP 132/79; PULSE 75
== END 2022-07-14 07:09 | disposition home or self-care (01) ==
LOC: CDL 07:09
PROVIDERS: PCP Nurse Practitioner; Visit Provider Family Medicine
DX: R07.89 Other chest pain (principal); I25.2 Old myocardial infarction
CPT/HCPCS: 36415; 78452; 93017; 96374; A9500; J2785

== ENCOUNTER → 2022-07-18 10:55 | Outpatient (BNVA) | payer MEDICARE, MEDICAID, SELFPAY | PROVIDERS: PCP Nurse Practitioner; Visit Provider Internal Medicine Cardiovascular Disease | DX: R06.02 Shortness of breath (principal); R94.39 Abnormal result of other cardiovascular function study; Z79.82 Long term (current) use of aspirin | CPT/HCPCS: 99205 ==

== ENCOUNTER → 2022-07-20 08:34 | Outpatient (BNVA) | payer MEDICARE, MEDICAID, SELFPAY | PROVIDERS: PCP Nurse Practitioner; Visit Provider Nurse Practitioner Family | DX: L57.8 Other skin changes due to chronic exposure to nonionizing radiation (principal); L85.3 Xerosis cutis; L57.0 Actinic keratosis; L82.1 Other seborrheic keratosis; Z85.828 Personal history of other malignant neoplasm of skin; L81.4 Other melanin hyperpigmentation; D22.111 Melanocytic nevi of right upper eyelid, including canthus; D22.5 Melanocytic nevi of trunk | CPT/HCPCS: 17000; 17003; 99213 ==

== ENCOUNTER → 2022-07-25 09:01 | Outpatient (BNVA) | payer MEDICARE, MEDICAID, SELFPAY | PROVIDERS: PCP Nurse Practitioner; Visit Provider Internal Medicine Cardiovascular Disease | DX: I70.90 Unspecified atherosclerosis (principal); R06.02 Shortness of breath; R94.39 Abnormal result of other cardiovascular function study | CPT/HCPCS: 80048; 85025; 85610 ==

== ENCOUNTER 2022-07-27 07:49 | Observation (INO) | payer MEDICARE, MEDICAID, SELFPAY ==
[2022-07-27] VITALS (22 sets, daily range): BP systolic 104–149; BP diastolic 62–90; PULSE 51–71; RESP 13–23; TEMP 36.3–36.9; O2SAT 92–100; BMI 25.4
--- NOTE | 2022-07-27 06:00 | XACV_ITS ---
Exam Room: [facility] Ht: 168 cm Wt: 72 kg BSA: 1.84 m2 Gender: Male : 1955 Any Known Allergies: Penicillins Exam Priority: Routine Procedure(s): Procedure Description: Diagnostic procedure Procedure Description: PCI procedure Procedure Description: Left Heart Catheterization Procedure Description: Drug Eluting Coronary Stent Procedure Description: PTCA Procedure Description: Coronary Atherectomy Procedure Description: Miscellaneous Procedure Description: ACT Procedure Description: Coronary Angiography Diagnostic Cath Status: Elective Diagnostic Findings * Jewel Petersen is a 67 year old male with abnormal stress test with reversible ischemia in LAD artery territory. He had stress test for ongoing exertional shortness and intermittent chest tightness. * Left Main has no disease. * Normal calibre left anterior descending artery. Mid Left Anterior Descending: calcified, short segment obstructive 95% stenosis, JUSTIN: 3 flow. * Circumflex with minor luminal irregularities. * Normal calibre right coronary artery. Mild narrowing in proximal PDA and PLB branches. * Coronary angiography shows right dominance. PCI Status: Elective PCI Indication: Other Interventional Findings * POCEDURE DETAIL: We engaged left main artery with XB 3.5 guide catheter. IV heparin was administered to maintain anticoagulation. 0.014 run-through guidewire was used to cross the stenosis and was put in distal LAD. TelePort microcatheter was used to exchange the run-through wire to a Viper wire. Multiple runs of orbital arthrectomy were performed. We then exchanged Viper wire back to run-through wire through teleport microcatheter. We predilated the stenosis with 3.0 x 12 mm semicompliant balloon. This was followed with placement of 3.5 x 15 mm resolute Nettie drug-eluting stent. We then postdilated the stent with 3.75 x 8 mm NC balloon. At this time final angiogram was performed that showed excellent stent expansion, no residual stenosis and JUSTIN-3 flow. 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 * Mid Left Anterior Descendin% stenosis treated with a AB TREK 3.00X12 RX BALLOON, JENA Mas NETTIE 3.5X15 SANG, and JENA TURK EUPHORA RX [id number] BALLOON. 0% residual stenosis, JUSTIN: 3 flow. Conclusions 1. Severe, 2. heavily calcified mid LAD stenosis s/p successful revascularization with orbital arthrectomy 3. and 4. 1 stent.. 5. Mid Left Anterior Descending was treated with a Balloon, Drug Eluting Stent, and Balloon. Recommendations * Dual antiplatelet therapy with aspirin and Plavix for at least 1 year. * High intensity statin therapy. * Outpatient cardiology follow-up in 2 to 4 weeks. Interventional RX Recommendation: PCI w/o planned CABG Diagnostic RX Recommendation: PCI w/o planned CABG Anticoagulation: Heparin Pressures Phase:Rest AO : 126 / 63 ( 86 ) @ 8:37:00 AM 116 / 65 ( 88 ) @ 8:42:00 AM 125 / 61 ( 86 ) @ 8:48:00 AM 123 / 44 ( 83 ) @ 8:48:00 AM 128 / 63 ( 89 ) @ 8:58:00 AM 129 / 66 ( 91 ) @ 9:06:00 AM 126 / 78 ( 100 ) @ 9:23:00 AM 132 / 79 ( 103 ) @ 9:32:00 AM LV : 113 / -14 / 11 @ 8:48:00 AM 119 / -13 / 12 @ 8:48:00 AM Valves Phase:DefaultPhase AV : 0.0 @ 8:44:01 AM AV Mean Gradient: 0.0 @ 8:44:01 AM Clinical Evaluation EBL: 5mL-10mL Procedural Details Procedure Consent Obtained. Admit Source: Out Patient. Pre-Procedure Time Out. Identified patient by full name and date of as verbalized by the patient/guarantor. Does the consent match the physician's order: Yes. Accurate & Complete Informed Consent: Yes. Inpatient/Outpatient History & Physical on Chart: Yes. If H&P is completed, is and addenduem needed: No; If yes, is the addendum complete: N/A. Visualize and Verify Site with Patient/Guarantor: N/A. Relevant Radiology Images available: Yes. The risks, benefits, and alternatives of sedation and/or procedure were discussed by physician. The patient agrees to continue. Procedure started. [facility] Clinical Fraility Score: 3: Managing Well. Broaching Machine Operator Indications: Worsening Angina. Chest Pain Symptom Assessment: Typical Angina Symptoms. Correct patient, site and procedure confirmed by cath team. Current diagnosis: Chest Pain, Abnormal stress test. PERRLA. 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 Lungs clear x 5 lobes. IV Site on Arrival: 20 gauge in the left anticubital. IV Fluids: 0.9% NaCl at 75ml/hr. 0 mL infused prior to director of labor relations. Pre Procedural Pulses: bilateral dorsalis pedis was 1+. Pre Procedural Pulses: bilateral posterior tibial was 1+. Oxygen started at 2liters/min via nasal canula. bilateral groins was prepped with chloroprep then draped in the usual sterile fashion. Physician notified. Baseline sample Acquired. HR: 56 BPM. Physician arrived. Physician scrubbed in. Immediate Pre-Procedure Time Out. Correct Patient: Yes; Correct Procedure: Yes; Correct Site: Yes; Correct Patient Position: Yes; Correct Supplies: Yes; Dried Flammable Prep: Yes; Blood Products Available: No;. Baseline sample Acquired. HR: 61 BPM. Lidocaine 1% infiltrated to the right groin. Arterial access obtained with micropuncture set. A 5 cape verdean JL4 catheter in over wire. Multiple views taken of left coronary artery. Catheter removed over the standard wire. A 5 cape verde[place] JR4 catheter in over wire. Multiple views taken of right coronary artery. Dr. Larry called to lab to review cine films. Dr. Larry arrived to director of labor relations. EDP Sample taken: LV 113/-15,11; HR: 57 BPM; SpO2: 100%. Pullback taken: LV 119/-14,12; AO 125/61(86); Mean: 0mmHg, Peak to Peak: 0mmHg, SEP: 6sec/min; HR: 59 BPM; SpO2: 100%. Catheter removed over the standard wire. Dr. Larry scrubbed in to perform intervention. Dr. Glover scrubbed out. Add inventory: Endoflator, Co-ems helicopter pilot. 6 cape verdean XB 3.5 guide catheter was inserted over the wire. 300 cm Runthrough guidewire was advanced through the guide catheter to lesion in the mid LAD. Guidewire advanced across lesion, wire seated in distal LAD. Teleport microcatheter in other runthrough. Runthrough wire out. Coronary Viperwire in through teleport catheter. Teleport catheter out over viperwire. Angiography performed. ACT drawn. Results out of range- high results. Therapeutic limits - pre-heparin administration 90-150 seconds and monitoring heparin during a vascular procedure >250 seconds. Device tested outside the body. Coronary orbital atherectomy 1.25mm in over viperwire to lesion in mid LAD. Orbital atherectomy 24 sec run performed on mid LAD. Second orbital atherectomy 24 sec run performed on mid LAD. Third run of orbital atherectomy for 17 sec on mid LAD lesion. Atherectomy device out over the viperwire. Angiography performed, checking results. Teleport catheter in over the viperwire. Viperwire removed through the teleport catheter. 300 cm runthrough in through teleport catheter, seated to distal LAD. Teleport microcatheter out. Balloon inserted to lesion in the mid LAD. Inflation number : 1 A AB TREK 3.00X12 RX BALLOON was prepped and advanced across the Mid LAD , then inflated to 12 CONSUELO for 0:19 seconds. Inflation number: 2 The AB TREK 3.00X12 RX BALLOON was reinflated across the Mid LAD, to 12 CONSUELO for 0:15 seconds. Balloon out. Angiography performed, checking results. Stent inserted to lesion in the mid LAD. Inflation Number : 3 A JENA Mas NETTIE 3.5X15 SANG -Lot Number#[id number] EXP 01-07-2024 was prepped and advanced across the Mid LAD. The stent was deployed at 12 CONSUELO for 0:17 seconds. Stent balloon out over wire. Balloon inserted to lesion in the mid LAD. Inflation number : 4 A MDT NC EUPHORA RX [id number] BALLOON was prepped and advanced across the Mid LAD , then inflated to 12 CONSUELO for 0:12 seconds. Inflation number: 5 The MDT NC EUPHORA RX [id number] BALLOON was reinflated across the Mid LAD, to 12 CONSUELO for 0:08 seconds. Balloon out. Angiography performed, checking results. Wire out. Results checked. ACT drawn. Results 287 seconds. Therapeutic limits - pre-heparin administration 90-150 seconds and monitoring heparin during a vascular procedure >250 seconds. Guide catheter out. A Right femoral angiogram was performed to determine safe placement of closure device. Lidocaine 1% infiltrated to the right groin. A Angio-Seal VIP ([facility]) was successful obtaining hemostatsis at the Right Femoral artery insertion site. EXP 02-04-23, LOT # [id number]. Post Procedure: Pulses reassessed and unchanged. PERRLA. 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 No VTE prophylaxis required. Medication's Wasted: Lidocaine 1% = 2 mL. Medication's Wasted: Nitro = 49.8 mg. Medication's Wasted: Heparin = 3000 units. Medication's Wasted: Other = Versed 1 mg. Medication's Wasted: Other = Fentanyl 25 mcg. Total IV fluids: 100 mL. Post-op diagnosis: Severe mid LAD stenosis, status post PCI . Stent placement X 1, Coronary atherectomy. Complications: None. Estimated blood loss: 5mL-10mL. Responsiveness - Normal response to verbal stimuli; alert and oriented, PERRLA. Airway - Unaffected, no intervention required; spontaneous ventilation. Circulation: W/N/L, pulses unchanged. Nausea/Vomiting: No. Procedure completed. Patient transferred by bed to CPRU. Vital chart was stopped. Access Site Site: Right Femoral artery Sheath Size: 6 Fr Hemostasis Method: Angio-Seal VIP ([facility]) Hemostasis Success: Successful Procedure Medications Start: 7:23 AM Stop: 7:23 AM Medication: Versed 1 mg and Fentanyl 25 mcg Amount: 1 Route: I.V. Start: 7:40 AM Stop: 7:40 AM Medication: Versed Amount: 1 mg Route: I.V. Start: 7:57 AM Stop: 7:57 AM Medication: Heparin Amount: 7000 units Route: I.V. Start: 8:03 AM Stop: 8:03 AM Medication: Versed 1 mg and Fentanyl 25 mcg Amount: 1 Route: I.V. Start: 8:18 AM Stop: 8:18 AM Medication: Heparin Amount: 1000 units Route: I.V. Start: 8:30 AM Stop: 8:30 AM Medication: Fentanyl Amount: 25 mcg Route: I.V. Start: 8:37 AM Stop: 8:37 AM Medication: Plavix Amount: 300 mg Route: P.O. I, the attending physician, have reviewed and verified all procedure medications. Yes, all medications given per verbal order History/Risk Factors Hypertension: No Dyslipidemia: Yes Peripheral Arterial Disease (PAD): No Myocardial Infarction (RI): No Obesity: No Renal Disease: No Tobacco Use: Never Prior Interventions PCI: No CABG: No Valve Surgery: No Report Signatures Interventional Workflow Finalized by Miguel Angel Larry MD on 08/07/2022 10:13 AM Diagnostic Workflow Finalized by Casandra Glover MD on 08/07/2022 04:19 AM
[2022-07-27] MEDS: diphenhydrAMINE 50 mg Capsule PO (06:30)
[2022-07-27] MEDS: aspirin 325 mg Tablet PO (06:30)
--- NOTE | 2022-07-27 07:17 | W.PM.OPSUD ---
Surgery/Procedure H&P Update DATE OF PROCEDURE: July 27, 2022 DATE H&P PERFORMED: 07/27/21 PREOP DIAGNOSIS: Abnormal stress test, chest pain PRIMARY INDICATION FOR PROCEDURE: Abnormal stress test, chest pain PLANNED PROCEDURE: Operation Date: 07/27/22 07:00 Proposed Procedures p [facility] w/wo 28380, R94.39,I70.90,R06.02(Left) - Casandra Glover MD PATIENT REASSESSED PRIOR TO SEDATION, WITH NO CHANGE NOTED: Yes PHYSICAL EXAM: alert, oriented x 3, clear to auscultation bilaterally and regular rate & rhythm AIRWAY EVAL/ANESTHESIA PLAN: normal airway, ASA III, Monitored Anesthesia, Local Anesthesia, Risks, benefits & alternatives of sedation and/or procedure discussed and Patient agrees to continue as planned
--- NOTE | 2022-07-27 10:43 | PC.NURSE ---
Patient came from clinical genetics laboratory chief to U at 0935.
[2022-07-27] MEDS: albuterol 2.5 mg/3 mL Neb INHALATION ×3 (11:40→19:45)
[2022-07-27] MEDS: sodium chloride 0.9% 1,000 ML 100 ML IV (12:20)
[2022-07-27] MEDS: atorvastatin 40 mg Tablet PO (20:46)
[2022-07-28] VITALS: BP 106/63; PULSE 83; RESP 18; TEMP 36.4; O2SAT 97
[2022-07-28 02:30] LABS: Basophils % 0.5 %; Eosinophils # 0.1 10^3/uL (0.0-0.8); Eosinophils % 0.7 %; Hematocrit 40.6 % (42.0-52.0); Hemoglobin 13.1 g/dL (11.7-16.6); Lymphocytes # 1.1 10^3/uL (0.8-4.8); Lymphocytes % 13.5 %; Mean Corpuscular HGB Conc 32.3 g/dL (30.0-36.0); Mean Corpuscular Hemoglobin 29.8 pg (28.0-34.0); Mean Corpuscular Volume 92.5 fl (80-94); Mean Platelet Volume 10.7 fL (7.4-10.4); Monocytes # 0.7 10^3/uL (0.2-0.9); Monocytes % 8.4 %; Neutrophils # 6.18 10^3/uL (1.8-7.7); Neutrophils % 76.4 %; Nucleated Red Blood Cells % 0 %; Platelet Count 235 10^3/cmm (130-400); Red Blood Count 4.39 10^6/uL (4.1-5.3); Red Cell Distribution Width 13.5 % (12.1-15.1); White Blood Count 8.1 10^3/uL (4.0-10.0)
[2022-07-28 02:59] LABS: Anion Gap 12.7 (5-19); Blood Urea Nitrogen 11 mg/dL (8-23); Calcium 8.8 mg/dL (8.5-10.5); Carbon Dioxide 28 mmol/L (22-29); Chloride 104 mmol/L (98-107); Glomerular Filtration Rate 95.8 mL/min (90-130); Glucose 83 mg/dL (65-115); Osmolality Calculated 289 mOsm/kg (285-295); Potassium 4.7 mmol/L (3.5-5.1); Sodium 140 mmol/L (136-145)
[2022-07-28 04:00] VITALS: BP 128/81; PULSE 69; RESP 18; O2SAT 97
[2022-07-28 05:11] VITALS: PULSE 71
[2022-07-28] MEDS: albuterol 2.5 mg/3 mL Neb INHALATION (07:51)
[2022-07-28 07:53] VITALS: PULSE 71; RESP 16; O2SAT 97
[2022-07-28 08:04] VITALS: BP 115/70; PULSE 76; RESP 20; TEMP 36.7; O2SAT 98
[2022-07-28] MEDS: clopidogrel 75 mg Tablet PO (08:57)
[2022-07-28] MEDS: aspirin 81 mg EC Tablet PO (08:57)
[2022-07-28] MEDS: metoprolol succinate ER (24 HR) 25 mg Tablet 12.5 MG PO (08:57)
[2022-07-28] MEDS: cetirizine 10 mg Tablet PO (09:08)
--- NOTE | 2022-07-28 09:30 | P.SS_ITS ---
Short Stay Summary Providers Date of Admit/Discharge: 07/28/22 Attending Provider: Casandra Glover MD Primary Care Provider: NELDA Orlando Chief Complaint: R06.02 HPI History of Present Illness Jewel Petersen is a 67 year old male was seen in office with abnormal stress test with reversible ischemia in LAD artery territory. He c/o exertional shortness and intermittent chest tightness. Admitted for elective LHC. Review of Systems Const: Denies: fever(s) or chills Eyes: Denies: change in vision Card: Reports: chest pain and dyspnea on exertion; Denies: palpitations, swelling of feet/ankles, lightheadedness or orthopnea Resp: Reports: dyspnea; Denies: productive cough or non-productive cough GI: Denies: abdominal pain, nausea or vomiting Musc: Reports: neck pain, back pain and joint pain Neuro: Denies: headache(s) or dizziness Psych: Denies: anxiety or depression Gama/Lymph: Denies: easy bruising or easy bleeding Home Meds/Allergies Home Medications and Allergies Home Medications Medication Instructions Recorded Confirmed Type dextromethorphan-guaifenesin 10 10 ml PO Q4H PRN Cough 06/17/22 07/27/22 History mg-100 mg/5 mL oral liquid (Tussin DM) Allergies Allergy/AdvReac Type Severity Reaction Status Date / Time Penicillins Allergy Difficulty Verified 07/26/22 10:45 swallowing PFSH Acute PFSH: Medical History History of basal cell carcinoma Under right eye 1998 Mixed hyperlipidemia Osteoarthritis Statin medication declined by patient Surgical History H/O left knee surgery History of colonoscopy with polypectomy (03/04/21) History of sinus surgery Family History Father COPD (chronic obstructive pulmonary disease) Social History Smoking and tobacco status: never smoked Second hand smoke exposure: No Smoking risk assessment/counseling performed?: No Alcohol intake: never Desire information about alcohol rehabilitation?: No Counseling given: No Substance/Drug Use: never Desire information about substance/drug rehabilitation?: No Counseling given: No Adopted: No Caregiver/support person: No Lives independently: Yes Household members: spouse Housing: House Marital status: Number of children: 2 service: No Current occupational status: retired Current occupational exposures/hazards: No Do you think of yourself as: Straight/Heterosexual Current gender identity: Male Vitals/I&O/Wt Last Vital Signs Temp 98.0 F 07/28/22 08:04 Pulse 76 07/28/22 08:04 Resp 20 H 07/28/22 08:04 BP 115/70 07/28/22 08:04 Pulse Ox 98 07/28/22 08:04 O2 Del Method Room Air 07/28/22 08:04 07/27/22 07/28/22 07/28/22 22:59 06:59 14:59 Intake Total 240 / 480 1440 / 1920 Output Total 1600 / 2675 520 / 3195 Balance -1360 / -2195 920 / -1275 Weight last 48 hrs Weight 158 lb Physical Exam Narrative: Gen: NAD, ABAN HEENT/Neck: No JVD, No pallor or icterus RS: CTAB/L. No wheezes or rales CVS: S1, S2 regular, No murmur, rub or gallop PA: soft, NTND, BS 2+, NA Ext: No edema, No significant bruising or hematoma at access site AIR SAMPLER: AAOx3 , No FND Hospital Course Admission Diagnoses Abnormal stress test and chest pain Hospital Course Patient underwent LHC and was found to have severely calcified stenotic lesion in mid LAD. He underwent atherectomy, f/b balloon angioplasty and placement of SANG placement to mid LAD lesion. He tolerated the procedure well. 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 request for service Routin e Exams 07/27/22 06:00 Ordered Procedures Performed: [facility] Discharge Plan Discharge Patient Disposition: Home Condition: Stable Prescriptions: New atorvastatin 40 mg Tablet 40 mg PO BEDTIME Qty: 90 3RF metoprolol succinate 25 mg Tablet Extended Release 24 Hr 12.5 mg PO DAILY Qty: 45 3RF Continued albuterol sulfate 90 mcg/actuation HFA aerosol inhaler 2 puff inhalation QID PRN (Reason: shortness of breath or wheezing) Qty: 6.7 2RF budesonide-formoterol [Symbicort] 160-4.5 mcg/actuation HFA aerosol inhaler 2 puff inhalation BID Qty: 10.2 2RF aspirin 81 mg tablet,delayed release (DR/EC) 81 mg PO DAILY Qty: 90 1RF clopidogrel 75 mg tablet 75 mg PO DAILY Qty: 94 1RF Rx Instructions: Take 300mg (4 tabs) first day then 75mg (1 tab) daily nitroglycerin [Nitrostat] 0.4 mg tablet, sublingual 0.4 mg sublingual Q5M PRN (Reason: chest pain) Qty: 25 2RF Rx Instructions: do not exceed 3 doses per episode fluticasone propionate 50 mcg/actuation spray,suspension 1 spray intranasal Q12H PRN (Reason: allergy symptoms) Qty: 16 2RF Rx Instructions: administer into each nostril cetirizine [Zyrtec] 10 mg tablet 10 mg PO DAILY Qty: 30 0RF Rx Instructions: OTC budesonide 0.25 mg/2 mL suspension for nebulization 0.25 mg inhalation BID Qty: 60 0RF albuterol sulfate 2.5 mg /3 mL (0.083 %) solution for nebulization 2.5 mg inhalation QID PRN (Reason: shortness of breath or wheezing) Qty: 75 5RF dextromethorphan-guaifenesin [Tussin DM] 10-100 mg/5 mL Liquid 10 ml PO Q4H PRN (Reason: Cough) Discontinued aspirin [Aspir-Lindsay] 325 mg tablet,delayed release (DR/EC) 325 mg PO DAILY PRN (Reason: Pain) metoprolol tartrate 25 mg tablet 25 mg PO BID Qty: 180 1RF atorvastatin 20 mg tablet 20 mg PO DAILY Qty: 90 1RF No Action (DME) nebulizer accessories Misc See Rx Instructions .Route Qty: 1 0RF Rx Instructions: As directed (DME) compressor, for nebulizer Device See Rx Instructions .Route Qty: 1 0RF Rx Instructions: As directed Discharge Orders: Discharge Order (Routine); Ordered 07/28/22 Ordered By: Casandra Glover Other Ambulatory Orders: Basic Metabolic Panel (Routine) Timeframe: 1 Week Location: Determined by Patient Ordered By: Casandra Glover Referrals: Keke Meng FNP [Nurse Practitioner] - 08/09/22 3:15 pm Casandra Glover MD [Physician] - 3 months (Your Dr. Glover follow up appointment will be scheduled while you are at your [facility] appointment. Thank you.) Discharge Diet: Cardiac Discharge Activity: Limit activity as instructed Patient Instructions: Metoprolol (By mouth) (Lopressor, Toprol XL), Atorvastatin (By mouth) (Lipitor), Coronary Angioplasty (DC), Shortness of Breath (DC), Chest Pain Stoplight, Opioid Safety, Post Angiogram Home Care Instructions Activity Restrictions/Additional Instructions: Do not lift anything more than 5 lbs for 1 week. Keep the site dry and clean No tub bathing or swimming for 1 week. Ok to shower Take medications as prescribed and follow up as scheduled. Attestations Medical Necessity Statement*: stable to be discharged home Time Spent in Patient Care*: less than 30 min Quality Metrics Clinical Quality Measures: [ No reported AMI, CVA or VTE this stay ] Coding Level of Care Code 68507 Diagnoses
[2022-07-28 10:58] VITALS: BP 132/89; PULSE 79; RESP 20; O2SAT 97
== END 2022-07-28 11:21 | disposition home or self-care (01) ==
LOC: CSU 07:50
PROVIDERS: Internal Medicine; Admitting Provider Internal Medicine Cardiovascular Disease; PCP Nurse Practitioner; Visit Provider Internal Medicine Cardiovascular Disease
DX: R94.39 Abnormal result of other cardiovascular function study (principal); E78.2 Mixed hyperlipidemia; Z79.82 Long term (current) use of aspirin; Z79.02 Long term (current) use of antithrombotics/antiplatelets; I25.10 Atherosclerotic heart disease of native coronary artery without angina pectoris; I25.84 Coronary atherosclerosis due to calcified coronary lesion
CPT/HCPCS: 36415; 80048; 85025; 85347; 93458; 94640; 96361; 96365; 99152; 99153; C1724; C1725; C1760; C1769; C1874; C1887; C1894; C9602; G0378; J1644; J2250; J3010; J3490; J7030; J7613; Q0163; Q9967

== ENCOUNTER → 2022-08-09 14:17 | Outpatient (BNVA) | payer MEDICARE, MEDICAID, SELFPAY | PROVIDERS: PCP Nurse Practitioner; Visit Provider Nurse Practitioner Family | DX: I25.10 Atherosclerotic heart disease of native coronary artery without angina pectoris (principal) | CPT/HCPCS: 80048; 99214 ==

== ENCOUNTER 2022-08-28 06:00 | Outpatient (RCR) | payer MEDICARE, MEDICAID, SELFPAY | END 2022-09-04 23:59 | disposition home or self-care (01) | LOC: APT 06:00 | PROVIDERS: Visit Provider Nurse Practitioner | DX: I25.10 Atherosclerotic heart disease of native coronary artery without angina pectoris (principal) | CPT/HCPCS: 97110; 97161 ==

== ENCOUNTER 2022-09-05 06:00 | Outpatient (RCR) | payer MEDICARE, MEDICAID, SELFPAY | END 2022-10-04 23:59 | disposition home or self-care (01) | LOC: APT 06:00 | PROVIDERS: Visit Provider Nurse Practitioner | DX: I25.10 Atherosclerotic heart disease of native coronary artery without angina pectoris (principal) | CPT/HCPCS: 97110 ==

== ENCOUNTER → 2022-10-24 10:46 | Outpatient (BNVA) | payer MEDICARE, MEDICAID, SELFPAY | PROVIDERS: PCP Nurse Practitioner; Visit Provider Internal Medicine Cardiovascular Disease | DX: I25.10 Atherosclerotic heart disease of native coronary artery without angina pectoris (principal); E78.2 Mixed hyperlipidemia; R06.02 Shortness of breath | CPT/HCPCS: 99213 ==

== ENCOUNTER → 2022-11-01 10:20 | Outpatient (BNVA) | payer MEDICARE, MEDICAID, SELFPAY | PROVIDERS: PCP Nurse Practitioner; Visit Provider Nurse Practitioner | DX: J45.909 Unspecified asthma, uncomplicated (principal); E78.2 Mixed hyperlipidemia; I25.10 Atherosclerotic heart disease of native coronary artery without angina pectoris; R06.02 Shortness of breath | CPT/HCPCS: 80053; 80061; 83721 ==

== ENCOUNTER → 2023-02-15 08:22 | Outpatient (BNVA) | payer MEDICARE, MEDICAID, SELFPAY | PROVIDERS: PCP Nurse Practitioner; Visit Provider Nurse Practitioner | DX: E78.2 Mixed hyperlipidemia (principal) | CPT/HCPCS: 80053; 84443 ==

== ENCOUNTER → 2023-03-19 13:47 | Outpatient (BNVA) | payer MEDICARE, MEDICAID, SELFPAY | PROVIDERS: PCP Nurse Practitioner; Visit Provider Nurse Practitioner Family | DX: R50.9 Fever, unspecified (principal) | CPT/HCPCS: 87400; 87426 ==

== ENCOUNTER → 2023-04-02 11:16 | Outpatient (BNVA) | payer MEDICARE, MEDICAID, SELFPAY | PROVIDERS: PCP Nurse Practitioner; Visit Provider Nurse Practitioner Family | DX: J45.909 Unspecified asthma, uncomplicated (principal); R05.3 Chronic cough | CPT/HCPCS: 71046 ==

== ENCOUNTER → 2023-04-05 10:50 | Outpatient (BNVA) | payer MEDICARE, MEDICAID, SELFPAY | PROVIDERS: PCP Nurse Practitioner; Visit Provider Nurse Practitioner Family | DX: R05.3 Chronic cough (principal); J45.909 Unspecified asthma, uncomplicated | CPT/HCPCS: 80053; 85025 ==

== ENCOUNTER 2023-04-23 13:31 | Outpatient (CLI) | payer MEDICARE, MEDICAID, SELFPAY ==
--- NOTE | 2023-04-23 14:00 | CT_ITS ---
WS: [id number] CT chest wo con [id number] HISTORY: R05.3 - Chronic cough TECHNIQUE: Axial imaging performed through the thorax. Coronal and sagittal reformats are submitted. All CT scans at [facility] use at least one of these dose optimization techniques: automated exposure control; mA and/or kV adjustment per patient size (includes targeted exams where dose is mat ched to clinical indication); or iterative reconstruction. CONTRAST: Omnipaque 350; 100 mL IV. DLP: 250.89 mGy.cm COMPARISON: Chest radiograph 04/02/2023 Lungs and central airway: Well aerated lungs. Mild tree-in-bud airspace disease in the LEFT lower lob e. There is mild bronchial wall thickening and tiny nodules. No mass. Pleura: Normal. No pleural effusion. Heart and pericardium: Normal size heart with no pericardial effusion. Mild coronary artery calcifica tions. There is probably a stent in the LEFT anterior coronary. Mediastinum and curt: Cannot evaluate for lymphadenopathy on this noncontrast exam. Hilar lymph nodes would be difficult to exclude. Vessels: Mild atherosclerosis aorta. No aneurysm. Normal size pulmonary artery. Chest wall and lower neck: No soft tissue masses. Upper abdomen: Small hiatal hernia. No adrenal mass. Osseous structures: Increase in thoracic kyphosis. Multilevel small Schmorl's nodes defects. IMPRESSION: 1. Very minimal LEFT lower lobe tree-in-bud airspace disease. Typically seen with endobronchial pneu monia. 2. No mass or nodules. 3. Mild coronary artery calcification.
== END 2023-04-23 13:32 | disposition home or self-care (01) ==
LOC: RAD 13:32
PROVIDERS: PCP Nurse Practitioner; Visit Provider Nurse Practitioner Family
DX: J45.909 Unspecified asthma, uncomplicated (principal); J98.4 Other disorders of lung; I25.10 Atherosclerotic heart disease of native coronary artery without angina pectoris
CPT/HCPCS: 71250

== ENCOUNTER → 2023-05-03 09:39 | Outpatient (BNVA) | payer MEDICARE, MEDICAID, SELFPAY | PROVIDERS: PCP Nurse Practitioner; Visit Provider Nurse Practitioner Family | DX: I25.10 Atherosclerotic heart disease of native coronary artery without angina pectoris (principal) | CPT/HCPCS: 99213 ==

== ENCOUNTER → 2023-07-18 08:17 | Outpatient (BNVA) | payer MEDICARE, MEDICAID, SELFPAY | PROVIDERS: PCP Nurse Practitioner; Visit Provider Nurse Practitioner Family | DX: L21.8 Other seborrheic dermatitis (principal); L57.8 Other skin changes due to chronic exposure to nonionizing radiation; L82.1 Other seborrheic keratosis; Z85.828 Personal history of other malignant neoplasm of skin; L81.4 Other melanin hyperpigmentation | CPT/HCPCS: 17000; 99214 ==

== ENCOUNTER → 2023-08-06 08:57 | Outpatient (BNVA) | payer MEDICARE, MEDICAID, SELFPAY | PROVIDERS: PCP Nurse Practitioner; Visit Provider Nurse Practitioner | DX: Z12.5 Encounter for screening for malignant neoplasm of prostate (principal); M79.672 Pain in left foot; E78.2 Mixed hyperlipidemia | CPT/HCPCS: 80053; 80061; 84550; 85025; G0103 ==

== ENCOUNTER → 2023-08-21 08:43 | Outpatient (BNVA) | payer MEDICARE, MEDICAID, SELFPAY | PROVIDERS: PCP Nurse Practitioner; Visit Provider Nurse Practitioner | DX: M79.672 Pain in left foot (principal) | CPT/HCPCS: 73630 ==

== ENCOUNTER → 2023-10-18 15:36 | Outpatient (BNVA) | payer MEDICARE, MEDICAID, SELFPAY | PROVIDERS: PCP Nurse Practitioner; Visit Provider Internal Medicine Cardiovascular Disease | DX: I25.10 Atherosclerotic heart disease of native coronary artery without angina pectoris (principal); E78.2 Mixed hyperlipidemia; R06.02 Shortness of breath; I10 Essential (primary) hypertension | CPT/HCPCS: 99214 ==

== ENCOUNTER 2023-12-06 10:19 | Emergency (ER) | payer MEDICARE, MEDICAID, SELFPAY ==
[2023-12-06 10:28] VITALS: BP 120/77; PULSE 64; TEMP 36.7; O2SAT 99; BMI 25.8
--- NOTE | 2023-12-06 10:47 | USCV_ITS ---
Nicola Jewel Age: 68 Gender: M : 1955 Exam Date: 12/06/2023 11:44 Ordering Phys: Hector Curtis DO Technologist: R [place] [facility] [place]: right leg pain PROCEDURES: Venous duplex imaging was performed in only the right lower extremity. The following venous structures were evaluated: common femoral vein, profunda vein, proximal portion of the greater saphenous vein, superficial femoral vein, and the popliteal vein. In addition, the posterior tibial veins were evaluated. In addition, the posterior tibial and peroneal trunk were evaluated. FINDINGS: Normal 2-D Doppler and augmentation and compressibility throughout the lower extremity venous structures. Additional imaging through the proximal calf veins also reveals no thrombus. Limited evaluation of the greater saphenous vein is patent with no thrombus. CONCLUSIONS No DVT right lower extremity. Dr. Francy Cano DO (Electronically Signed) Final Date: 06 December 2023 15:17 S
--- NOTE | 2023-12-06 11:02 | W.ED.EXTPRO ---
HPI - Extremity Problem General: Chief complaint: Extremity Problem,Nontraumatic Stated complaint: knot on right leg; green colored Time Seen by Provider: 12/06/23 10:35 History of Present Illness: Patient presents to the ER with a lump on the inside of his right proximal tibia area, this lump is painful, the lump is blue-yellow and green like an old swollen bruise and hematoma however patient is on Plavix for stent placed back in 2022. Patient is on remember any type of trauma to this area. Related Data Home Medications Medication Instructions Recorded Confirmed azelastine 137 mcg (0.1 %) nasal 1 spray intranasal BID 08/06/23 12/06/23 spray Previous Rx's Medication Instructions Recorded compressor, for nebulizer #1 ea 07/10/22 aspirin 81 mg tablet,delayed 81 mg PO DAILY #90 tabs 07/18/22 release nitroglycerin 0.4 mg sublingual 0.4 mg sublingual Q5M PRN chest 07/18/22 tablet (Nitrostat) pain #25 tabs atorvastatin 80 mg tablet 80 mg PO BEDTIME #90 tabs 11/24/22 clopidogrel 75 mg tablet 75 mg PO DAILY #90 tabs 12/29/22 nebulizer accessories #1 ea 03/20/23 metoprolol succinate 25 mg 12.5 mg (1/2 x 25 mg) PO DAILY #45 07/26/23 tablet,extended release 24 hr tabs albuterol sulfate 90 mcg/actuation 2 puff inhalation QID PRN 08/06/23 aerosol inhaler shortness of breath or wheezing #6.7 grams magnesium oxide 400 mg (241.3 mg 400 mg PO BID #60 tabs 08/06/23 magnesium) tablet Allergies Allergy/AdvReac Type Severity Reaction Status Date / Time No Known Allergies Allergy Verified 12/06/23 10:33 Review of Systems General: Reports: 10 or more systems reviewed and unremarkable except in HPI and below PFSH ED PFSH: Medical History Allergic asthma Coronary artery disease Osteoarthritis Mixed hyperlipidemia History of basal cell carcinoma Under right eye 1998 Surgical History History of colonoscopy with polypectomy (03/04/21) H/O left knee surgery History of sinus surgery Family History Father COPD (chronic obstructive pulmonary disease) Social History Smoking and tobacco/nicotine status: never used tobacco/nicotine Second hand smoke exposure: No Alcohol intake: never Substance/Drug Use: never Adopted: No Caregiver/support person: No Lives independently: Yes Household members: spouse Housing: House Marital status: Number of children: 2 service: No Current occupational status: retired Current occupational exposures/hazards: No Do you think of yourself as: Straight/Heterosexual Current gender identity: Male Physical Exam Const: COMMON NORMALS: no acute distress, average body habitus, patient oriented x3, no limitations, healthy appearing, alert and well nourished HENMT: COMMON NORMALS: normocephalic, atraumatic, hearing grossly normal bilaterally, external ears normal, Normal external nose present and moist oral mucous membranes HEAD & SCALP: normocephalic and atraumatic NOSE: Normal external nose present EXTERNAL EAR: Yes external ears normal Neck/C-Spine: COMMON NORMALS: no JVD Chest: COMMONS NORMALS: normal inspection of the chest and normal palpation of entire chest wall Resp: COMMON NORMALS: normal respiratory effort, No retractions, No use of accessory muscles and clear to auscultation bilaterally AUSCULTATION: clear to auscultation bilaterally Cardio: COMMON NORMALS: no JVD, regular rate, regular rhythm, S1 normal heart sound present, S2 normal heart sound present, No gallops present (Cardio), No clicks present (Cardio), No murmurs present (Cardio) and No rub (Cardio) RATE: regular rate RHYTHM: regular rhythm HEART SOUNDS: S1 normal heart sound present and S2 normal heart sound present GI: COMMON NORMALS: Normal to inspection, nondistended, normoactive bowel sounds present, Soft to palpation, non-tender, No hepatosplenomegaly present and no masses PALPATION: Yes Soft to palpation and Yes No hepatosplenomegaly present Extremity: NARRATIVE EXTREMITY EXAM: Swollen tender mass to inside of right medial proximal tibial region, and green discoloration, Neuro: COMMON NORMALS: patient oriented x3 SENSORIUM/ORIENTATION: Yes alert Course Vital Signs: Vital signs: Vital Signs Temperature 98.1 F 12/06/23 10:28 Pulse Rate 64 10/31/24 10:28 Blood Pressure 120/77 12/06/23 10:28 Pulse Oximetry 99 12/06/23 10:28 Oxygen Delivery Me thod Room Air 12/06/23 10:28 MDM - Extremity (Nontraumatic) Medical Decision Making Ultrasound of lower extremity was taken patient had to leave before we get results back we will call him with results. Continue Plavix as directed. Medical Records I reviewed the patient's medical records. Lab Data I reviewed the patient's lab results. All radiology interpretation(s) finalized by discharge Discharge Plan Discharge Patient Disposition: Home Clinical Impression: Acute leg pain Condition: Stable Prescriptions: No Action aspirin 81 mg tablet,delayed release (DR/EC) 81 mg PO DAILY Qty: 90 1RF nitroglycerin [Nitrostat] 0.4 mg tablet, sublingual 0.4 mg sublingual Q5M PRN (Reason: chest pain) Qty: 25 2RF Rx Instructions: do not exceed 3 doses per episode albuterol sulfate 90 mcg/actuation HFA aerosol inhaler 2 puff inhalation QID PRN (Reason: shortness of breath or wheezing) Qty: 6.7 2RF azelastine 137 mcg (0.1 %) spray,non-aerosol 1 spray intranasal BID magnesium oxide 400 mg (241.3 mg magnesium) tablet 400 mg PO BID Qty: 60 5RF (DME) compressor, for nebulizer Device See Rx Instructions .Route Qty: 1 0RF Rx Instructions: As directed (DME) nebulizer accessories Kit See Rx Instructions .Route Qty: 1 0RF Rx Instructions: As directed atorvastatin 80 mg tablet 80 mg PO BEDTIME Qty: 90 3RF clopidogrel 75 mg tablet 75 mg PO DAILY Qty: 90 3RF metoprolol succinate 25 mg tablet extended release 24 hr 12.5 mg PO DAILY Qty: 45 3RF Discharge Orders: Discharge ED (Routine); Ordered 12/06/23 Ordered By: Hector Curtis Referrals: Chico Marrero, [facility] [Primary Care Provider] - 1 week Activity Restrictions/Additional Instructions: He had an ultrasound today at the emergency room and has not been read by the radiologist yet we will call you with any results. Otherwise follow-up with your family practice physician within next 7 days as needed. Coding Level of Care Code ED [employer] for [facility]
== END 2023-12-06 14:19 | disposition home or self-care (01) ==
PROVIDERS: Emergency Provider Emergency Medicine; PCP Nurse Practitioner
DX: M79.604 Pain in right leg (principal); Z79.82 Long term (current) use of aspirin; Z79.02 Long term (current) use of antithrombotics/antiplatelets; Z85.828 Personal history of other malignant neoplasm of skin; I25.10 Atherosclerotic heart disease of native coronary artery without angina pectoris
CPT/HCPCS: 93971; 99284

== ENCOUNTER → 2024-01-21 08:21 | Outpatient (BNVA) | payer MEDICARE, MEDICAID, SELFPAY | PROVIDERS: PCP Nurse Practitioner; Visit Provider Nurse Practitioner | DX: E78.2 Mixed hyperlipidemia (principal) | CPT/HCPCS: 80053; 80061; 85025 ==

== ENCOUNTER 2024-03-08 08:31 | Outpatient (CLI) | payer MEDICARE, MEDICAID, SELFPAY ==
[2024-03-08 08:51] LABS: Basophils % 1.2 %; Eosinophils % 0.6 %; Hematocrit 22.8 % (37-53); Lymphocytes % 29.2 %; Mean Corpuscular HGB Conc 31.1 g/dL (30-55); Mean Corpuscular Hemoglobin 28.2 pg (27-33); Mean Corpuscular Volume 90.5 fl (82-101); Mean Platelet Volume 9.4 fL (7.4-10.4); Monocytes # 0.5 10^3/uL (0.2-0.9); Monocytes % 14.9 %; Neutrophils # 1.85 10^3/uL (1.8-7.7); Neutrophils % 53.8 %; Nucleated Red Blood Cells % 0 %; Platelet Count 308 10^3/cmm (157-399); Red Blood Count 2.52 10^6/uL (3.85-5.65); White Blood Count 3.43 10^3/uL (3.29-11.43)
[2024-03-08 09:14] LABS: Alanine Aminotransferase 12 U/L (0-41); Albumin Level 4.2 g/dL (3.5-5.2); Alkaline Phosphatase 59 U/L (40-130); Anion Gap 11.8 (5-19); Aspartate Amino Transferase 15 U/L (0-40); Blood Urea Nitrogen 9 mg/dL (8-23); Calcium 8.8 mg/dL (8.5-10.5); Carbon Dioxide 26 mmol/L (22-29); Chloride 104 mmol/L (98-107); Globulin 2.6 g/dL (1.3-4.6); Glomerular Filtration Rate 111.5 mL/min (90-130); Glucose 64 mg/dL (65-115); Iron 8 ug/dL (59-158); Osmolality Calculated 283 mOsm/kg (285-295); Percent Saturation 2.6 % (20-50); Potassium 3.8 mmol/L (3.5-5.1); Sodium 138 mmol/L (136-145); Total Bilirubin 0.3 mg/dL (0.15-1.2); Total Iron Binding Capacity 298 mcg/dl; Total Protein 6.8 g/dL (6.6-8.7); Unsaturated Iron Binding 290 ug/dL (112-347)
== END 2024-03-08 08:32 | disposition home or self-care (01) ==
PROVIDERS: PCP Nurse Practitioner; Visit Provider Nurse Practitioner
DX: D64.9 Anemia, unspecified; I10 Essential (primary) hypertension; K92.2 Gastrointestinal hemorrhage, unspecified
CPT/HCPCS: 36415; 80053; 83540; 83550; 85025

== ENCOUNTER → 2024-03-10 09:36 | Outpatient (BNVA) | payer MEDICARE, MEDICAID, SELFPAY | PROVIDERS: PCP Nurse Practitioner; Visit Provider Nurse Practitioner | DX: K92.2 Gastrointestinal hemorrhage, unspecified (principal); D64.9 Anemia, unspecified; Z87.19 Personal history of other diseases of the digestive system | CPT/HCPCS: 82270 ==

== ENCOUNTER → 2024-03-17 13:55 | Outpatient (BNVA) | payer MEDICARE, MEDICAID, SELFPAY | PROVIDERS: PCP Nurse Practitioner; Visit Provider Student in an Organized Health Care Education/Training Program | DX: E61.1 Iron deficiency (principal); K92.1 Melena | CPT/HCPCS: 99204 ==

== ENCOUNTER 2024-04-08 06:13 | Day surgery (SDC) | payer MEDICARE, MEDICAID, SELFPAY ==
[2024-04-08] MEDS: sodium chloride 0.9% 1,000 ML 30 ML IV (06:25)
[2024-04-08 06:28] VITALS: BP 119/74; PULSE 67; RESP 18; TEMP 36.9; O2SAT 98; BMI 25.0
--- NOTE | 2024-04-08 06:38 | P.ANESASSM_ITS ---
Pre-Anesthetic Assessment Height/Weight: Height 1.68 m Weight 70.307 kg Temp Pulse Resp BP Pulse Ox O2 Del Method 98.5 F 67 18 119/74 98 Room Air 04/08/24 06:28 04/08/24 06:28 04/08/24 06:28 04/08/24 06:28 04/08/24 06:28 04/08/24 06:28 Operation Date: 04/08/24 07:00 Proposed Procedures p EGD 08724, 87741, G0105, K92.1, E61.1, Z12.11(Not Applicable) - Ulices Kilgore MD s Colonoscopy(Not Applicable) - Ulices Kilgore MD Familial anesthetic complications: None Was Beta Elo taken within 24 hours: N/A Was Clonidine taken within 24 hours: N/A Last intake: Intake Last Liquid Date 04/07/24 Last Liquid Time 19:00 Last Solid Date 04/06/24 Last Solid Time 19:00 Social No alcohol and No tobacco Exam alert, oriented x 3, clear to auscultation bilaterally and regular rate & rhythm Airway Submandibular: within normal limits (TMJ) Cervical ROM: within normal limits Mallampati: Class III Dentition: chipped (Top left tooth) and full History/ROS No significant history except as noted and No significant complaints Pulmonary Asthma and Exertional Dyspnea CV/HEM Anemia, Coronary Artery Disease, Hypertension and Myocardial Infarction (Stent x1 2022, last saw cardiology October 2023, has another appointment of this month. No changes. Has never used prescribed nitro) Procedure: At the baseline, the blood pressure was 138/75 mmHg with a heart rate of 64 bpm. The electrocardiogram showed normal sinus rhythm, normal axis with normal ST and T's. The Lexiscan was infused over a period of 20 seconds. A total of 0.4 mg of Lexiscan was infused. The stress phase was continued for a total of 5 minutes. Heart rate was at the end of stress phase was 79 bpm and a blood pressure of 128/78 mmHg. The EKG at the peak infusion revealed normal sinus rhythm with no significant ST-T wave changes. Sestamibi was injected 20 seconds after the Lexiscan infusion. Blood pressure at the end of recovery phase was 132/79 mmHg with a heart rate of 74 bpm. Conclusion: 1. Normal EKG response to Lexiscan infusion 2. No Lexiscan induced chest pain or cardiac arrhythmia. 3. Normal blood pressure and heart rate response. None reported Hepatic None reported GI Gastroesophageal Reflux Disease (Controlled with meds) Metabolic Hyperlipidemia Musc/skel Osteoarthritis/DJD Neuropsych None reported Anesthetic Plan ASA status: 3 Anesthesia: Anesthesia Evaluation, General and MAC Risk of > 500 ml blood loss (7ml/kg in children): No Medications/Allergies Home Medications ?Medication ?Instructions ?Recorded ?Confirmed ?Last Taken ?Type compressor, for nebulizer #1 ea 07/10/22 03/17/24/04/01 Rx nitroglycerin 0.4 mg sublingual 0.4 mg sublingual Q5M PRN chest 07/18/22 04/03/24 04/06/24 Rx tablet (Nitrostat) pain #25 tabs nebulizer accessories #1 ea 03/20/23 03/17/2404/01 Rx metoprolol succinate 25 mg 12.5 mg (1/2 x 25 mg) PO DA SARKIS #45 07/26/23 04/03/24 04/06/24 Rx tablet,extended release 24 hr tabs albuterol sulfate 90 mcg/actuation 2 puff inhalation Q ID PRN 08/06/23 04/03/24 04/06/24 Rx aerosol inhaler shortness of breath or wheez ing #6.7 grams azelastine 137 mcg (0.1 %) nasal 1 spray intranasal BI D PRN 08/06/23 04/03/24 04/06/24 History spray Congestion atorvastatin 80 mg tablet 80 mg PO BEDTIME #90 tabs 04/03/24 04/06/24 Rx fluticasone propionate 50 1 spray intranasal DAILY PRN 01/21/24 04/03/24 04/06/24 History mcg/actuation nasal Congestion spray,suspension pantoprazole 40 mg tablet,delayed 40 mg PO DAILY #30 t abs 03/07/24 04/03/24 04/06/24 Rx release (Protonix) ferrous sulfate 300 mg (60 mg 300 mg (5 mL) PO BID #50 0 mL 03/10/24 04/03/24 04/06/24 Rx iron)/5 mL oral liquid Allergies Allergy/AdvReac Type Severity Reaction Status Date / Time No Known Allergies Allergy Verified 04/08/24 06:24 REPLACED BY [facility] Anesthesia Medical History (Updated 03/17/24 @ 14:44 by Ulices Kilgore MD) Allergic asthma Coronary artery disease Osteoarthritis Mixed hyperlipidemia History of basal cell carcinoma Under right eye 1997 Surgical History (Updated 03/17/24 @ 14:26 by BRYCE Barron) History of colonoscopy with polypectomy (03/04/21) H/O left knee surgery History of sinus surgery 2011 Dr. Santillan sinus surgery Family History Father COPD (chronic obstructive pulmonary disease) Social History Smoking and tobacco/nicotine status: never used tobacco/nicotine Second hand smoke exposure: No Alcohol intake: never Substance/Drug Use: never Adopted: No Caregiver/support person: No Lives independently: Yes Household members: spouse Housing: House Marital status: Number of children: 2 service: No Current occupational status: retired Current occupational exposures/hazards: No Do you think of yourself as: Straight/Heterosexual Current gender identity: Male Data Anesthesia Cardiac Studies: Sestamibi Stress Test (Cardiology) 07/14
--- NOTE | 2024-04-08 07:03 | W.PM.OPSUD ---
Surgery/Procedure H&P Update DATE OF PROCEDURE: April 08, 2024 DATE H&P PERFORMED: 03/17/24 H&P UPDATE INFORMATION: I have reviewed H&P completed within last 30 days, I have examined patient prior to procedure and No changes to prior documentation PLANNED PROCEDURE: Operation Date: 04/08/24 07:00 Proposed Procedures p EGD 53961, 60034, G0105, K92.1, E61.1, Z12.11(Not Applicable) - Ulices Kilgore MD s Colonoscopy(Not Applicable) - Ulices Kilgore MD
[2024-04-08 07:25] VITALS: BP 131/75; PULSE 57; RESP 12; TEMP 36.3; O2SAT 99
[2024-04-08 07:40] VITALS: BP 123/70; PULSE 58; RESP 16; O2SAT 100
--- NOTE | 2024-04-08 07:58 | ANE.PACU2 ---
Inpatient post-anesthesia follow up: Airway intact: Yes Vital signs: Temperature 97.4 F Pulse Rate 58 Respiratory Rate 16 Blood Pressure 123/70 Pulse Oximetry 100 Oxygen Delivery Me thod Room Air Oxygen Flow Rate Fraction of Inspir ed Oxygen Hydration adequate: Yes Nausea and vomiting: No Pain level: 1 Mental status: Baseline
== END 2024-04-08 07:58 | disposition home or self-care (01) ==
PROVIDERS: PCP Nurse Practitioner; Visit Provider Student in an Organized Health Care Education/Training Program
PROC: 0DJ08ZZ Inspection of Upper Intestinal Tract, Via Natural or Artificial Opening Endoscopic (ICD-10-PCS; principal; 2024-04-08 07:00)
PROC: 0DJD8ZZ Inspection of Lower Intestinal Tract, Via Natural or Artificial Opening Endoscopic (ICD-10-PCS; CPT 45378; 2024-04-08 07:00)
DX: K64.4 Residual hemorrhoidal skin tags (principal); K92.1 Melena; K21.9 Gastro-esophageal reflux disease without esophagitis; I25.10 Atherosclerotic heart disease of native coronary artery without angina pectoris; I10 Essential (primary) hypertension; I25.2 Old myocardial infarction; K08.89 Other specified disorders of teeth and supporting structures; J44.9 Chronic obstructive pulmonary disease, unspecified; E61.1 Iron deficiency; E78.2 Mixed hyperlipidemia; M19.90 Unspecified osteoarthritis, unspecified site; Z79.899 Other long term (current) drug therapy; Z95.5 Presence of coronary angioplasty implant and graft
CPT/HCPCS: 43239; 45378; 88305; J2371; J2704; J7030

== ENCOUNTER → 2024-04-21 09:56 | Outpatient (BNVA) | payer MEDICARE, MEDICAID, SELFPAY | PROVIDERS: PCP Nurse Practitioner; Visit Provider Student in an Organized Health Care Education/Training Program | DX: Z09 Encounter for follow-up examination after completed treatment for conditions other than malignant neoplasm (principal) | CPT/HCPCS: 99213 ==

== ENCOUNTER → 2024-04-22 15:04 | Outpatient (BNVA) | payer MEDICARE, MEDICAID, SELFPAY | PROVIDERS: PCP Nurse Practitioner; Visit Provider Internal Medicine Cardiovascular Disease | DX: I25.10 Atherosclerotic heart disease of native coronary artery without angina pectoris (principal); Z95.5 Presence of coronary angioplasty implant and graft; E78.2 Mixed hyperlipidemia; Z79.82 Long term (current) use of aspirin | CPT/HCPCS: 99214 ==

== ENCOUNTER → 2024-06-09 08:15 | Outpatient (BNVA) | payer MEDICARE, MEDICAID, SELFPAY | PROVIDERS: PCP Nurse Practitioner; Visit Provider Nurse Practitioner | DX: I10 Essential (primary) hypertension (principal); E61.1 Iron deficiency; I25.10 Atherosclerotic heart disease of native coronary artery without angina pectoris | CPT/HCPCS: 80053; 80061; 82607; 83540; 84443; 85025 ==

== ENCOUNTER → 2024-07-10 08:14 | Outpatient (BNVA) | payer MEDICARE, MEDICAID, SELFPAY | PROVIDERS: PCP Nurse Practitioner; Visit Provider Nurse Practitioner Family | DX: L82.1 Other seborrheic keratosis (principal); L57.8 Other skin changes due to chronic exposure to nonionizing radiation; L81.4 Other melanin hyperpigmentation; D22.5 Melanocytic nevi of trunk; L57.0 Actinic keratosis | CPT/HCPCS: 17000; 99213 ==

== ENCOUNTER → 2024-09-09 16:17 | Outpatient (BNVA) | payer MEDICARE, MEDICAID, SELFPAY | PROVIDERS: PCP Nurse Practitioner; Visit Provider Nurse Practitioner | DX: Z12.5 Encounter for screening for malignant neoplasm of prostate (principal); I10 Essential (primary) hypertension; E61.1 Iron deficiency | CPT/HCPCS: 80053; 80061; 83540; 85025; G0103 ==

== ENCOUNTER → 2024-12-02 15:11 | Outpatient (BNVA) | payer MEDICARE, MEDICAID, SELFPAY | PROVIDERS: PCP Nurse Practitioner; Visit Provider Internal Medicine Cardiovascular Disease | DX: I25.10 Atherosclerotic heart disease of native coronary artery without angina pectoris (principal); I10 Essential (primary) hypertension; E78.2 Mixed hyperlipidemia | CPT/HCPCS: 99214 ==

== ENCOUNTER → 2025-01-22 08:40 | Outpatient (BNVA) | payer MEDICARE, MEDICAID, SELFPAY | PROVIDERS: PCP Nurse Practitioner; Referring Provider Nurse Practitioner Family; Visit Provider Internal Medicine | DX: R05.3 Chronic cough (principal); K21.9 Gastro-esophageal reflux disease without esophagitis; T78.40XA Allergy, unspecified, initial encounter; X58.XXXA Exposure to other specified factors, initial encounter; J44.9 Chronic obstructive pulmonary disease, unspecified; Q25.46 Tortuous aortic arch | CPT/HCPCS: 36415; 71046; 85004; 85048; 86003; 99204; Q3014 ==